=== PATIENT | female | born 1955 | race Caucasian/White ===

== ENCOUNTER 2017-08-29 10:42 | Observation (INO) ==
[2017-08-29 12:30] LABS: Basophils % 0.5 %; Eosinophils # 0.1 K/mcL (0.0-0.6); Eosinophils % 2.3 %; Hematocrit 40.8 % (35.3-44.9); Hemoglobin 13.5 g/dL (11.5-15.4); Immature Granulocytes % 0.5 % (0-4); Lymphocytes # 1.3 K/mcL (0.6-4.6); Lymphocytes % 22.6 %; Mean Corpuscular HGB Conc 33.1 g/dL (31.6-35.5); Mean Corpuscular Hemoglobin 27.9 pg (28.0-33.3); Mean Corpuscular Volume 84.3 fL (83.0-100.0); Mean Platelet Volume 10.6 fL (9.4-12.4); Monocytes # 0.3 K/mcL (0.0-1.3); Monocytes % 4.3 %; Platelet Count 157 K/mcL (140-400); Red Blood Count 4.84 M/mcL (3.82-4.97); Red Cell Distribution Width 13.5 % (11.5-14.5); Segmented Neutrophils % 69.8 %
[2017-08-29 12:46] LABS: BUN/Creatinine Ratio 24 (6-26); Blood Urea Nitrogen 21 mg/dL (7-20); Calcium 9.1 mg/dL (8.6-10.8); Carbon Dioxide 24 mEq/L (19-29); Chloride 110 mEq/L (98-109); Glucose 200 mg/dL (70-99); Osmolality,Calculated 303 (280-300); Potassium 4.3 mEq/L (3.5-4.5); Sodium 142 mEq/L (136-145); eGFR For African Americans > 60 (> 60); eGFR For Non-African Americans > 60 (> 60)
[2017-08-29] MEDS ORDERED: Aspirin 81 MG TAB.CHEW PO STA (15:25)
--- NOTE | 2017-08-29 16:42 | Emergency Department Note ---
Disposition Clinical Impression: Chest pain Qualifiers: Chest pain type: unspecified Qualified Code(s): R07.9 - Chest pain, unspecified Disposition: Admitted As Inpatient Condition: Good Time of Disposition: 17:00 Chest Pain HPI - General Chief Complaint: ED Chest Pain Stated Complaint: chest pain x 3days Time Seen by Provider: 08/29/17 15:00 Source: patient Mode of arrival: wheelchair Limitations: no limitations Vital Signs Reviewed: Yes Nursing Notes Reviewed: Yes - History of Present Illness HPI Narrative: Patient is a 62-year-old female with a past medical history of hyperlipidemia, diabetes, hypertension, aortic valve repair and TIAs presents with complaint of right-sided chest pain that started 3 days ago while she was sitting down. She describes the chest pain as sharp stabbing pain that radiates into her right arm into into her back. The pain is nonexertional and it comes and goes and at its worst it is a 8 out of 10. She states nothing seems to make the pain better or worse. She has not taken any medications for the pain. She does have associated nausea and diaphoresis with the chest pain. It is also reproducible. The patient denies any shortness of breath or cough with the pain. No history of blood clots. No recent travels or surgeries. She states she was admitted to the hospital back in January 2016 where she had a catheterization but no stents. She states that her aortic valve repair was done in November 2015. She states this was the cause of her TIA because presentations from the valve or causing her to have any strokes. Denies any hemoptysis, fevers, headache, changes in vision, abdominal pain, urinary symptoms, diarrhea or lower extremity swelling or calf pain. Severity scale (1-10): 8 - Related Data Home Medications Medication Instructions Recorded Confirmed Gabapentin [Neurontin] 300 mg PO TID 01/07/16 08/29/17 Insulin Glargine [Lantus] 14 units SQ HS 01/07/16 08/29/17 Insulin LISPRO [Humalog Kwikpen 13 units SQ TID 01/07/16 08/29/17 U-100] Metoprolol [Lopressor] 25 mg PO BID 01/07/16 08/29/17 Sucralfate [Carafate] 1 gm PO QID 01/07/16 08/29/17 Topiramate [Topamax] 25 mg PO BID 01/07/16 08/29/17 metFORMIN [Glucophage] 1,000 mg PO BID 01/07/16 08/29/17 Aspirin Enteric Coated [Aspirin EC] 81 mg PO DAILY 08/29/17 08/29/17 Glimepiride [Amaryl] 2 mg PO 0800 08/29/17 08/29/17 Ibuprofen [Motrin] 800 mg PO TID PRN 08/29/17 08/29/17 Metoclopramide [Reglan] 5 mg PO BID 08/29/17 08/29/17 Nystatin POWDER [Nystop] 1 appl TP BID PRN 08/29/17 08/29/17 Simvastatin [Zocor] 20 mg PO HS 08/29/17 08/29/17 hydroCHLOROthiazide 25 mg PO QAM 08/29/17 08/29/17 [Hydrochlorothiazide] traMADol [Ultram] 50 mg PO BID PRN 08/29/17 08/29/17 Allergies Allergy/AdvReac Type Severity Reaction Status Date / Time latex Allergy Anaphylaxis Verified 08/07/17 12:48 Penicillins Allergy Anaphylaxis Verified 08/07/17 12:48 lisinopril AdvReac Swelling Verified 08/07/17 12:48 of Lip/Tongue/Throat All systems ED: reviewed and negative except as stated. Constitutional: Denies: fever, chills ENT ED: Denies: throat pain Cardiovascular: Reports: chest pain. Denies: palpitations, dyspnea on exertion , orthopnea, edema Respiratory: Denies: cough, dyspnea, wheezes Gastrointestinal: Denies: abdominal pain, nausea, vomiting, diarrhea Genitourinary: Denies: urgency, dysuria Musculoskeletal: Denies: back pain, neck pain Integumentary: Denies: rash, abrasion Neurological: Denies: headache, weakness Chest Pain PMH - Past Medical History Medical history: Reports: coronary artery disease, diabetes, hypertension, myocardial infarction, TIA Surgical history: Reports: appendectomy, cholecystectomy, hysterectomy Psychiatric history: Reports: bipolar - Social History Smoking Status: Never smoker Alcohol use: Reports: none Drug use: Reports: none Physical Exam Patient is in no acute distress she is sitting up in bed. She speaks in full sentences and she is pleasant. - General Limitations: no limitations General appearance: alert, in no apparent distress - Head Head exam: atraumatic, normocephalic, normal inspection - Eye Eye exam: Present: normal appearance, PERRL, EOMI - ENT ENT exam: normal exam, normal oropharynx, mucous membranes moist - Neck Neck exam: Present: normal inspection, full ROM, trachea midline - Chest Chest inspection: Present: normal inspection, symmetric chest wall rise. Absent : tenderness - Respiratory Respiratory exam: Present: normal lung sounds bilaterally, other (Chest pain is reproducible.). Absent: respiratory distress, wheezes - Cardiovascular Cardiovascular exam: Present: regular rate, normal rhythm, normal heart sounds - Abdominal Exam Abdominal exam: Present: soft, Non-Tender, normal bowel sounds - Extremities Exam Extremities exam: Present: normal inspection, full ROM, normal capillary refill. Absent: tenderness, pedal edema - Back Exam Back exam: Present: normal inspection, full ROM. Absent: tenderness, CVA tenderness (R), CVA tenderness (L) - Neurological Exam Neurological exam: Present: alert, oriented X3 - Psychiatric Psychiatric exam: Present: normal affect, normal mood - Skin Skin exam: Present: warm, dry, intact, normal color Course Course Narrative: Patient is a 8-year-old female with multiple risk factors for cardiac disease including hyperlipidemia, diabetes, hypertension, and aortic valve repair. She is presenting tonight with right-sided chest pain that is reproducible and comes and goes and is currently an 8 out of 10. The patient's lab work so far is unremarkable troponin was negative. Her EKG does not show any signs of ischemia or infarction at this time. Her initial troponin was negative. Patient is to receive a full aspirin while in the emergency department and she will also undergo Nitrol trial. Patient's chest x-ray was no acute. This pending the patient will be admitted to the hospitalist for further evaluation of her chest pain. It does appear that the patient had workup of her chest pain back in January 2016 when she is presenting with similar episodes of pain at that time. Her echo done in January 2016 [facility] showed 65-70% ejection fraction with mild LVH and mild left diastolic dysfunction. Normal wall motion. She had a heart catheter done but no stent placement. She also had a CT chest that was negative at that time for any PE. - Reevaluation(s) Reevaluation #1: The patient states that her pain improved with the nitroglycerin. The patient does have a blood pressure of the 180s over 110. However, the patient states that she has not had her home medications yet today which she does take medication for blood pressure at home. After the nitroglycerin the patient's blood pressure has been improving at this time is 160/104. Plan remains to admit the patient hospitalist. Time: 16:56 Vital Signs Temperature 97.9 F 08/29/17 10:55 Pulse Rate 75 08/29/17 10:55 Respiratory Rate 16 08/29/17 10:55 Blood Pressure 174/92 08/29/17 10:55 O2 Sat by Pulse Oximetry 98 08/29/17 10:55 Temperature 98 F 08/30/17 16:47 Pulse Rate 62 08/30/17 16:47 Respiratory Rate 17 08/30/17 16:47 Blood Pressure 125/76 08/30/17 16:47 O2 Sat by Pulse Oximetry 97 08/30/17 16:47 Oxygen Delivery Oxygen Delivery Room Air Chest Pain - MDM Narrative Medical decision making narrative: Repeat EKG: Patient had a repeat EKG done at the time of me seeing her due to her chest pain being an 8 out of 10. EKG was done at 15:38. Rate of 70 bpm sinus rhythm normal axis and no signs of hypertrophy and no ST elevation or depression or Q waves EKG is unchanged from her prior EKG that was done at 11 AM this morning. - Medical Records Medical records reviewed: Yes I reviewed the patient's medical records. - Lab Data Lab results reviewed: Yes I reviewed the patient's lab results. Result diagrams: 08/30/17 04:03 08/30/17 04:03 Lab Results 08/29/17 08/29/17 08/29/17 Range/Units 12:22 12:22 12:22 WBC 5.8 (4.3-11.1) K/mcL RBC 4.84 (3.82-4.97) M/mcL Hgb 13.5 (11.5-15.4) g/dL Hct 40.8 (35.3-44.9) % MCV 84.3 (83.0-100.0) fL MCH 27.9 L (28.0-33.3) pg MCHC 33.1 (31.6-35.5) g/dL RDW 13.5 (11.5-14.5) % Plt Count 157 (140-400) K/mcL MPV 10.6 (9.4-12.4) fL Immature Gran % 0.5 (0-4) % Seg Neutrophils % 69.8 % Lymphocytes % 22.6 % Monocytes % 4.3 % Eosinophils % 2.3 % Basophils % 0.5 % Neutrophils # 4.0 (1.6-8.9) K/mcL Lymphocytes # 1.3 (0.6-4.6) K/mcL Monocytes # 0.3 (0.0-1.3) K/mcL Eosinophils # 0.1 (0.0-0.6) K/mcL Basophils # 0.0 (0.0-0.2) K/mcL Sodium 142 (136-145) mEq/L Potassium 4.3 (3.5-4.5) mEq/L Chloride 110 H (98-109) mEq/L Carbon Dioxide 24 (19-29) mEq/L BUN 21 H (7-20) mg/dL Creatinine 0.88 (0.57-1.11) mg/dL Est GFR ( Amer) > 60 (> 60) Est GFR (Non-Af Amer) > 60 (> 60) BUN/Creatinine Ratio 24 (6-26) Glucose 200 H (70-99) mg/dL Calculated Osmolality 303 H (280-300) Calcium 9.1 (8.6-10.8) mg/dL Troponin I 0.00 (0-0.03) ng/mL - Radiology Data Radiology results reviewed: Yes I reviewed the patient's radiology results. Chest X-Ray 08/29/17 11:04 IMPRESSION: No evidence of acute cardiopulmonary disease. D/ / Rakesh Brown MD / Rakesh Brown MD Interpreting Provider: Rakesh Brown MD - EKG Data EKG attestation: Yes I reviewed and interpreted this EKG. EKG results narrative: Patient's initial EKG interpreted by me done at 11:01 AM showed a rate of 72 bpm in a normal sinus rhythm. Normal axis. No signs of hypertrophy. No ST elevation or depression or new Q waves. EKG is unchanged from prior that was performed on November 292016. Heart Score - Score History: Moderately Suspicious EKG: Normal Age: 45-65 Risk Factors: Equal/Greater than 3 risk factor or history of atherosclerotic disease Troponin: Less than normal limit HEART Score Total: 4 Attestation Statement - Attestation Attestation: I examined this patient and my medical decision-making was reviewed with the Resident Physician. I agree with the documented findings, disposition and treatment plan as described except to the extent set forth below. Chest pain with risk factors. Plan to admit to the hospital for further evaluation of possible acute coronary syndrome.
[2017-08-29] MEDS: Nitroglycerin 0.4 MG TAB.SUBL SL PRN ×2 (16:43→17:20)
[2017-08-29] MEDS ORDERED: traMADol 50 MG TABLET PO PRN ×2 (21:49→21:54)
[2017-08-29] MEDS ORDERED: Naloxone 0.4 MG/ML INJ IVP PRN (21:50)
[2017-08-29] MEDS ORDERED: D5% in Water 1,000 ML IVC PRN (21:50)
[2017-08-29] MEDS ORDERED: Dextrose Gel 15 GM PO PRN ×2 (21:50)
[2017-08-29] MEDS ORDERED: *HR* Morphine 2 MG/ML SYRINGE IVP PRN (21:50)
[2017-08-29] MEDS ORDERED: *HR* Dextrose 50 % in Water (Syg) 50 ML SYRINGE IVP PRN (21:50)
--- NOTE | 2017-08-29 22:30 | Internal Med History&Physical ---
<Gwyn Abreu - Last Filed: 08/29/17 22:43> Date of Encounter: 08/29/17 Time of Encounter: 22:28 Assessment and Plan (1) ACS (acute coronary syndrome) Current visit: Yes Status: Acute History of prior TN. Initially complaining of sharp chest pain for 3 days reporting 06/16, now complaining of right-sided chest pain that is dull without radiation and nonexertional 02/14. Initial troponin negative. Chest x-ray negative for acute pulmonary process. EKG normal sinus rhythm rate of 70. Continue to rule out ACS Continuous telemetry, continuous SPO2 monitoring, Echocardiogram in the morning Pain control with morphine 2 mg every 4 hours when necessary Serial troponins, Stress test contraindicated due to continued chest pain (2) Diabetes Current visit: Yes Status: Acute History of type 2 diabetes. On glyburide and metformin at home as well as sliding scale. Stop glyburide and metformin. Continue basal insulin add LSSIC with AC/HC Accu-Cheks. Diabetic diet Qualifiers: Diabetes mellitus type: type 2 Diabetes mellitus complication status: without complication Diabetes mellitus buttermaker insulin use: with buttermaker use Qualified Code(s): E11.9 - Type 2 diabetes mellitus without complications ; Z79.4 - prison (current) use of insulin; Z79.4 - long term care phlebotomist (current) use of insulin; Z79.4 - prison (current) use of insulin; Z79.4 - prison ( current) use of insulin (3) HTN (hypertension) Current visit: Yes Status: Acute History of hypertension. Currently hypertensive average systolic blood pressure 170s. She has not had her antihypertensives today. Plan is to restart antihypertensive medications. Continue BB and HCTZ. Qualifiers: Hypertension type: essential hypertension Qualified Code(s): I10 - Essential (primary) hypertension (4) HLD (hyperlipidemia) Current visit: Yes Status: Acute History of hyperlipidemia continue statin at home dose Qualifiers: Hyperlipidemia type: unspecified Qualified Code(s): E78.5 - Hyperlipidemia , unspecified Internal Medicine - H&P: HPI Chief complaint: Chest pain Admitted From: Home Plans for Post Hospital Care: Home History of present illness: Ms. Mtz is a 62 year old female with a PMH of HLD, HTN, DM, aortic valve repair TN with stents and multiple TIAs. She reports to [facility] today with nonexertional right-sided chest pain 3 days that was initially sharp on presentation. She was given 2 sublingual nitroglycerin and chest pain improved from 06/16-02/14. Troponin -0.01 chest x-ray no acute pulmonary process. Due to ongoing chest pain and multiple risk factors including CAD, HLD, HTN, DM she will be admitted for further workup and evaluation Past Med Surg Social Fam HX - Past Medical History Medical history: coronary artery disease, diabetes, hyperlipidemia, hypertension , myocardial infarction, TIA Psychiatric history: bipolar - Past Surgical History Surgical History: appendectomy, cholecystectomy, hysterectomy - Social History Smoking Status: Never smoker Smokeless Tobacco Status: No Alcohol use: none Drug use: none - Family History Mother Adopted: No Family Member Ethnicity: Non- Living Status: Still Living Hx Family Cardiac Disorders: Yes (HTN,) Hx Family Respiratory Disorders: Yes (COPD, one lung removed) Hx Family Cancer: No Hx Family GI Disorders: No Hx Family Endocrine Disorder: Yes (DM) Hx Family Neuromuscular Disorders: No Hx Family Neurologic Disorders: No Hx Family HEENT Disorders: No Hx Family Autoimmune Disorders: No Internal Medicine - H&P: Meds Gabapentin [Neurontin] 300 mg PO TID 01/07/16 [History] Insulin Glargine [Lantus] 14 units SQ HS 01/07/16 [History] Insulin LISPRO [Humalog Kwikpen U-100] 13 units SQ TID 01/07/16 [History] Metoprolol [Lopressor] 25 mg PO BID 01/07/16 [History] Sucralfate [Carafate] 1 gm PO QID 01/07/16 [History] Topiramate [Topamax] 25 mg PO BID 01/07/16 [History] metFORMIN [Glucophage] 1,000 mg PO BID 01/07/16 [History] Aspirin Enteric Coated [Aspirin EC] 81 mg PO DAILY 08/29/17 [History] Glimepiride [Amaryl] 2 mg PO 0800 08/29/17 [History] Ibuprofen [Motrin] 800 mg PO TID PRN 08/29/17 [History] Metoclopramide [Reglan] 5 mg PO BID 08/29/17 [History] Nystatin POWDER [Nystop] 1 appl TP BID PRN 08/29/17 [History] Simvastatin [Zocor] 20 mg PO HS 08/29/17 [History] hydroCHLOROthiazide [Hydrochlorothiazide] 25 mg PO QAM 08/29/17 [History] traMADol [Ultram] 50 mg PO BID PRN 08/29/17 [History] 3 Allergy/AdvReac Type Severity Reaction Status Date / Time latex Allergy Anaphylaxis Verified 08/07/17 12:48 Penicillins Allergy Anaphylaxis Verified 08/07/17 12:48 lisinopril AdvReac Swelling Verified 08/07/17 12:48 of Lip/Tongue/Throat All Systems PM: A 10-system review of systems was performed and is negative for pertinent findings except as documented above in the HPI. - Constitutional Constitutional: no chills, no fatigue, no fever(s), no night sweats, no weakness , no weight gain, no weight loss - Cardiovascular Cardiovascular ROS IM: as per HPI, dyspnea on exertion (Mild exertional dyspnea) , no edema - Respiratory Respiratory: as per HPI, dyspnea on exertion, no cough, no dyspnea, no hemoptysis, no wheezing, no pain on inspiration, no pain with cough - Gastrointestinal Gastrointestinal: no abdominal pain, no diarrhea, no hematemesis, no hematochezia, no melena, no nausea, no vomiting - Genitourinary Genitourinary: no change in urinary stream, no dysuria, no flank pain, no hematuria - Musculoskeletal Musculoskeletal ROS IM: no numbness, no tingling - Integumentary Integumentary IM: no rash, no unusual bruising - Neurological Neurological ROS: headache(s) (Following 2 sublingual nitroglycerin), no confusion, no convulsions, no focal weakness, no numbness, no tingling, no tremor(s) - Constitutional Vitals: Temp Pulse Resp BP Pulse Ox 98.2 F 74 14 179/101 93 08/29/17 19:00 08/29/17 19:00 08/29/17 19:00 08/29/17 19:00 08/29/17 19:00 General appearance: Present: cooperative, A&O X 3, no acute distress, answers questions appropriately - Head Head exam: Present: atraumatic, normocephalic - Eye Eye exam: Present: PERRL, conjuntiva pink, sclera anicteric Pupils: Present: PERRL - Neck Neck exam general surgery: Present: supple, trachea midline. Absent: lymphadenopathy - Respiratory Respiratory exam: Present: CTAB. Absent: accessory muscle use, rales, rhonchi, wheezes - Cardiovascular Cardiovascular exam: Present: RRR, +S1, +S2. Absent: diastolic murmur, gallop, rubs, systolic murmur - GI/Abdominal GI/Abdominal exam: Present: normal bowel sounds, soft, no peritoneal signs. Absent: distended, tenderness - Extremities Exam Extremities exam: Present: warm, radial pulses palpable and symmetrical. Absent : calf tenderness, cyanotic, pedal edema - Neurological Exam Neurological exam: Present: CN II-XII intact, oriented X3, no focal deficits. Absent: pronater drift, facial droop, speech deficit - Skin Skin exam: Present: dry, intact Internal Med - H&P Results - Labs CBC & Chem 7: 08/29/17 12:22 08/29/17 12:22 - EKG Data -: EKG Interpreted by Myself EKG shows normal: sinus rhythm - EKG Data Prior EKG available for review: yes When compared to previous EKG: there is no significant change Interpretation IM: normal EKG - Diagnostic Studies Chest x-ray Status: image reviewed by me Additional comments: No acute cardiopulmonary process <Saima Caal - Last Filed: 08/30/17 03:20> Date of Encounter: 08/30/17 Internal Medicine - H&P: HPI History of present illness: Ms. Mtz is a 62 year old female All Systems PM: A 10-system review of systems was performed and is negative for pertinent findings except as documented above in the HPI. - Constitutional Vitals: Temp Pulse Resp BP Pulse Ox 98.1 F 58 14 174/72 98 08/30/17 03:07 08/30/17 03:07 08/30/17 03:07 08/30/17 03:07 08/30/17 03:07 Internal Med - H&P Results - Labs CBC & Chem 7: 08/29/17 12:22 08/29/17 12:22 Labs: Cardiac Enzymes 08/29/17 Range/Units 22:25 Troponin I 0.01 (0-0.03) ng/mL - Attending Attestation I saw and examined patient independently. I have discussed with [employer] Mr Abreu regarding the management plan. Agree with the documentation. Patient presented with chest pain to rule out ACS. On exam, patient has significant right chest wall tenderness. Most likely chest pain is up from muscular or skeletal source. However, need to rule out ACS with checking 3 sets of troponin. Also will check echocardiogram. Keep the patient on telemetry.
[2017-08-29] MEDS ORDERED: Insulin LISPRO 300 UNITS/3 ML VIAL SQ SCH (22:33)
[2017-08-29] MEDS: Gabapentin 300 MG CAPSULE PO SCH (22:43)
[2017-08-29] MEDS: Topiramate 25 MG TABLET PO SCH (22:43)
[2017-08-30 04:50] LABS: Basophils % 0.5 %; Eosinophils # 0.2 K/mcL (0.0-0.6); Eosinophils % 2.9 %; Hematocrit 38.6 % (35.3-44.9); Hemoglobin 12.8 g/dL (11.5-15.4); Immature Granulocytes % 0.3 % (0-4); Lymphocytes # 1.4 K/mcL (0.6-4.6); Lymphocytes % 23.1 %; Mean Corpuscular HGB Conc 33.2 g/dL (31.6-35.5); Mean Corpuscular Hemoglobin 27.5 pg (28.0-33.3); Mean Platelet Volume 11.1 fL (9.4-12.4); Monocytes # 0.4 K/mcL (0.0-1.3); Monocytes % 6.2 %; Neutrophils # 4.1 K/mcL (1.6-8.9); Platelet Count 155 K/mcL (140-400); Red Blood Count 4.65 M/mcL (3.82-4.97); Red Cell Distribution Width 13.5 % (11.5-14.5)
[2017-08-30 04:58] LABS: BUN/Creatinine Ratio 22 (6-26); Blood Urea Nitrogen 19 mg/dL (7-20); Calcium 9.1 mg/dL (8.6-10.8); Carbon Dioxide 22 mEq/L (19-29); Chloride 109 mEq/L (98-109); Glucose 205 mg/dL (70-99); Osmolality,Calculated 296 (280-300); Potassium 3.9 mEq/L (3.5-4.5); Sodium 139 mEq/L (136-145); eGFR For African Americans > 60 (> 60); eGFR For Non-African Americans > 60 (> 60)
[2017-08-30] MEDS ORDERED: *HR* Enoxaparin 40 MG/0.4 ML SYRINGE SQ SCH (06:00)
[2017-08-30] MEDS: Gabapentin 300 MG CAPSULE PO SCH ×2 (07:49→14:35)
[2017-08-30] MEDS: Topiramate 25 MG TABLET PO SCH (07:49)
[2017-08-30] MEDS: Insulin LISPRO 300 UNITS/3 ML VIAL SQ SCH ×3 (07:52→16:54)
[2017-08-30] MEDS ORDERED: Aspirin Enteric Coated 81 MG Tablet PO SCH (09:00)
[2017-08-30] MEDS ORDERED: hydroCHLOROthiazide 25 MG TABLET PO SCH (09:00)
[2017-08-30] MEDS ORDERED: Regadenoson 0.4 MG/5 ML SYRINGE IVP ONE (09:12)
--- NOTE | 2017-08-30 16:04 | Electrocardiograph Report ---
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
--- NOTE | 2017-08-30 16:14 | Discharge Summary ---
Date of Encounter: 08/30/17 Time of Encounter: 14:45 - Discharge Diagnosis (1) Chest pain Priority: Primary Status: Acute Comments: Patient reports chronic midsternal chest pain, intermittent, sharp, sometimes radiation to either right or left chart. She reports some shortness of breath at times, no nausea. Onset in November 2015 after her age or aortic valve repair. Pain is reproducible with palpation and with deep inspiration. Troponins were negative. She had a left heart catheter in January, that showed no coronary artery disease. Chest x-ray is negative for an acute cardiopulmonary process. Echocardiogram shows all EF of 60% with mild LV hypertrophy, mild LVEDD, mild TR. Patient's stress test today was negative for ischemia or infarct, gated EF of greater than 70%. I believe the chest pain is musculoskeletal in nature status post aortic valve repair. Continue to follow with cardiology. Chest X-Ray 08/29/17 11:04 IMPRESSION: No evidence of acute cardiopulmonary disease. D/ / Rakesh Brown MD / Rakesh Brown MD Interpreting Provider: Rakesh Brown MD Echocardiogram 08/30/17 22:26 Impressions: LVEF 60%. Mild left ventricular concentric hypertrophy. Mild left ventricular diastolic dysfunction. Normal right ventricular structure and function. Mild tricuspid regurgitation. No pulmonary hypertension. Left Ventricular Wall Motion: Rest Echo Findings All wall segments showed normal motion. Findings: Study Quality * Technically adequate exam. ECG Findings * Normal sinus rhythm. Left Ventricle * LVEF 60%. * Normal LV chamber size. * Mild left ventricular concentric hypertrophy. * Mild left ventricular diastolic dysfunction. Right Ventricle * Normal right ventricular structure and function. Left Atrium * Moderately dilated left atrium. Right Atrium * Normal right atrial size. Aortic Valve * No aortic regurgitation. * Trileaflet aortic valve. * Normal aortic valve structure. * No aortic stenosis. Mitral Valve * Normal mitral valve structure. * No mitral regurgitation. * No mitral stenosis. Tricuspid Valve * Tricuspid valve not well visualized. * Mild tricuspid regurgitation. * Estimated RA pressure is 3 mmHg. * Estimated RVSP is 27 mmHg. * No pulmonary hypertension. Pulmonic Valve * Pulmonic valve is not well visualized. * No pulmonic stenosis. * Trace pulmonic regurgitation. Pulmonary Artery * Pulmonary artery not well visualized. Aorta * Normally sized aortic root. Pericardium * There is no pericardial effusion present. Interatrial Septum * No evidence of PFO by color Doppler. IVC * Normal IVC dimensions and inspiratory collapse. Qualifiers: Chest pain type: unspecified Qualified Code(s): R07.9 - Chest pain, unspecified (2) ACS (acute coronary syndrome) Priority: Secondary Status: Acute Comments: History of prior MT. Patient tells admitting physician that she has had chest pain for 3 days. She tells me that she has had chest pain "open heart" in November,. Initial troponin negative. Chest x-ray negative for acute pulmonary process. EKG normal sinus rhythm rate of 70. Echo is within normal limits, stress test is negative for ischemia or infarct. Patient had left heart catheter in January, that showed no disease. Troponins are negative. Patient will follow up with cardiology as scheduled for continued evaluation. (3) Diabetes Priority: Secondary Status: Chronic Comments: Poorly controlled with an A1c of 9.5. Patient could potentially benefit from diabetes education. Continue diabetic diet. Continue home medications. 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 Continue home medications. Continue to monitor vital signs and share with primary care provider. Qualifiers: Hypertension type: essential hypertension Qualified Code(s): I10 - Essential (primary) hypertension (5) HLD (hyperlipidemia) Priority: Secondary Status: Chronic Comments: Continue home medication. Qualifiers: Hyperlipidemia type: unspecified Qualified Code(s): E78.5 - Hyperlipidemia , unspecified (6) DVT prophylaxis Priority: Secondary Status: Acute Comments: Lovenox SQ - Discharge Medications Home Medications: Gabapentin [Neurontin] 300 mg PO TID 01/07/16 [History] Insulin Glargine [Lantus] 14 units SQ HS 01/07/16 [History] Insulin LISPRO [Humalog Kwikpen U-100] 13 units SQ TID 01/07/16 [History] Metoprolol [Lopressor] 25 mg PO BID 01/07/16 [History] Sucralfate [Carafate] 1 gm PO QID 01/07/16 [History] Topiramate [Topamax] 25 mg PO BID 01/07/16 [History] metFORMIN [Glucophage] 1,000 mg PO BID 01/07/16 [History] Aspirin Enteric Coated [Aspirin EC] 81 mg PO DAILY 08/29/17 [History] Glimepiride [Amaryl] 2 mg PO 0800 08/29/17 [History] Ibuprofen [Motrin] 800 mg PO TID PRN 08/29/17 [History] Metoclopramide [Reglan] 5 mg PO BID 08/29/17 [History] Nystatin POWDER [Nystop] 1 appl TP BID PRN 08/29/17 [History] Simvastatin [Zocor] 20 mg PO HS 08/29/17 [History] hydroCHLOROthiazide [Hydrochlorothiazide] 25 mg PO QAM 08/29/17 [History] traMADol [Ultram] 50 mg PO BID PRN 08/29/17 [History] Allergies/Adverse Reactions: 3 Allergy/AdvReac Type Severity Reaction Status Date / Time latex Allergy Anaphylaxis Verified 08/07/17 12:48 Penicillins Allergy Anaphylaxis Verified 08/07/17 12:48 lisinopril AdvReac Swelling Verified 08/07/17 12:48 of Lip/Tongue/Throat Procedures/tests Complete & Pending: Procedures Performed prior 72 hours Category Date Time Status NM jamison perf SPECT multi [NM] Routine Exams 08/30/17 07:22 Taken EV echocardiogram Routine Y 08/30/17 22:26 Completed SP pharm nuclear stress Routine Y 08/30/17 07:21 Completed Date of admission: 08/29/17 17:27 Primary care physician: Xavier Thomas MD Discharging clinician: Merline Rojo Anticipated date of discharge: 08/30/17 - Patient Status Disposition: Home, Self-Care Condition: Good Functional capacity at discharge: independent ambulation Overall status at discharge: patient is back to baseline - Discharge Instructions Follow Up With: Xavier Thomas MD [Primary Care Provider] - 09/06/17 2:00 pm Additional Instructions: Follow-up with her primary care provider. Return to the emergency department as needed for any other problems or concerns , or if symptoms return or worsen. Take your medications as directed. Return to your normal activities as tolerated. - Diet and Activity Activity: increase activity as tolerated Diet: diabetic diet, low fat, low cholesterol Hospital course: Ms. Mtz is a 62 year old female with past medical history of hypertension, diabetes, hyperlipidemia, MT, aortic valve repair. Patient presented to the emergency department with complaint of chest pain. She reports constant chest pain since aortic valve repair, reports ED physician she has had chest pain for 3 days. She tells primary nurse she has had chest pain for 2 weeks. Pain is reproducible with palpation deep inspiration. Echo and stress tests were negative. Troponins were negative. Chest x-ray is free of any cardiopulmonary processes. Patient denies chest pain. She states it is intermittent, sharp and stabbing, sometimes with radiation, sometimes without. It is not necessarily related to exertion, does not always improve with rest. His chest pain is atypical and most likely due to chest wall pain. Patient's labs are stable and within normal limits. Vitals are stable and within normal limits. Patient is ready for discharge. See assessment and plan for hospital course. - Time Spent with Patient Total time spent providing and/or coordinating discharge services: Less than 30 minutes - Constitutional Vitals: Temp Pulse Resp BP Pulse Ox 98.2 F 67 16 117/84 100 08/30/17 11:24 08/30/17 11:24 08/30/17 11:24 08/30/17 11:24 08/30/17 11:24 General appearance: Present: cooperative, A&O X 3, pleasant, no acute distress, answers questions appropriately - Head Head exam: Present: atraumatic, normal inspection, normocephalic - Eye Eye exam: Present: EOMI, normal appearance, conjuntiva pink, sclera anicteric - Neck Neck exam general surgery: Present: supple, trachea midline. Absent: lymphadenopathy - Respiratory Respiratory exam: Present: CTAB. Absent: accessory muscle use, rales, rhonchi, wheezes - Cardiovascular Cardiovascular exam: Present: RRR, +S1, +S2. Absent: diastolic murmur, gallop, rubs, systolic murmur - GI/Abdominal GI/Abdominal exam: Present: hepatomegaly, normal bowel sounds, soft, no peritoneal signs. Absent: distended, tenderness - Extremities Exam Extremities exam: Present: normal capillary refill, normal inspection, warm, radial pulses palpable and symmetrical. Absent: calf tenderness, cyanotic, pedal edema, tenderness - Neurological Exam Neurological exam: Present: alert, oriented X3, no focal deficits. Absent: facial droop, speech deficit - Skin Skin exam: Present: dry, intact, normal color, warm. Absent: rash
[2017-08-30 16:48] VITALS: BP 125/76
[2017-08-30] MEDS ORDERED: Insulin LISPRO 300 UNITS/3 ML VIAL SQ SCH (21:00)
[2017-08-30] MEDS ORDERED: INSULIN GLARGINE 14 UNIT SQ SCH (21:00)
[2017-08-30] MEDS ORDERED: Insulin DETEMIR 100 UNIT/ML X5UNITS SQ SCH (21:00)
== END 2017-08-30 16:57 | disposition home or self-care (01) ==
LOC: 3BNU 10:42 → EMEROO 10:42 → 3BNU 19:40
PROVIDERS: ADMIT Nurse Practitioner; ATTEND Registered Nurse

== ENCOUNTER 2018-03-08 09:47 | Observation (INO) ==
[2018-03-08] MEDS ORDERED: 0.9 % Sodium Chloride 500 ML IVC ONE (09:57)
[2018-03-08] MEDS ORDERED: Aspirin 81 MG TAB.CHEW PO ONE (09:57)
--- NOTE | 2018-03-08 10:06 | Emergency Department Note ---
Disposition Clinical Impression: Chest pain Disposition: Admitted As Inpatient Condition: Good Referrals: Xavier Thomas MD [Primary Care Provider] - Forms: ED Satisfaction Letter Time of Disposition: 11:12 Chest Pain HPI - General Chief Complaint: ED Chest Pain Stated Complaint: chest pain, sob Time Seen by Provider: 03/08/18 09:56 Source: patient, EMS Mode of arrival: EMS Limitations: no limitations Vital Signs Reviewed: Yes Nursing Notes Reviewed: Yes - History of Present Illness HPI Narrative: Patient presents to the ED with the chief complaint of chest pain. Patient reports that she has been having some intermittent left-sided sharp chest discomfort that feels like someone is punching her in the chest. She has a history of a CABG in 2016, but states the pain does not really feel similar to that. She does complain of getting nauseated and diaphoretic with this and also short of breath. Reports the pain never fully goes away, but it does come and go. Has been getting progressively worse over the last 3 days. Severity scale (1-10): 9 - Related Data Home Medications Medication Instructions Recorded Confirmed Gabapentin [Neurontin] 300 mg PO TID 01/07/16 08/29/17 Insulin Glargine [Lantus] 14 units SQ HS 01/07/16 08/29/17 Insulin LISPRO [Humalog Kwikpen 13 units SQ TID 01/07/16 08/29/17 U-100] Metoprolol [Lopressor] 25 mg PO BID 01/07/16 08/29/17 Sucralfate [Carafate] 1 gm PO QID 01/07/16 08/29/17 Topiramate [Topamax] 25 mg PO BID 01/07/16 08/29/17 metFORMIN [Glucophage] 1,000 mg PO BID 01/07/16 08/29/17 Aspirin Enteric Coated [Aspirin EC] 81 mg PO DAILY 08/29/17 08/29/17 Glimepiride [Amaryl] 2 mg PO 0800 08/29/17 08/29/17 Ibuprofen [Motrin] 800 mg PO TID PRN 08/29/17 08/29/17 Metoclopramide [Reglan] 5 mg PO BID 08/29/17 08/29/17 Nystatin POWDER [Nystop] 1 appl TP BID PRN 08/29/17 08/29/17 Simvastatin [Zocor] 20 mg PO HS 08/29/17 08/29/17 hydroCHLOROthiazide 25 mg PO QAM 08/29/17 08/29/17 [Hydrochlorothiazide] traMADol [Ultram] 50 mg PO BID PRN 08/29/17 08/29/17 Previous Rx's Medication Instructions Recorded Azithromycin [Azithromycin 6-Tab 250 mg PO PER PKG DI #6 tab 09/09/17 Pack] Benzonatate [Tessalon] 200 mg PO TID PRN #30 capsule 09/09/17 GuaiFENesin ER [Mucinex] 1,200 mg PO BID #20 tbbp.12hr 09/09/17 Allergies Allergy/AdvReac Type Severity Reaction Status Date / Time latex Allergy Anaphylaxis Verified 09/09/17 10:31 lisinopril Allergy Swelling Verified 09/09/17 10:31 of Lip/Tongue/Throat Penicillins Allergy Anaphylaxis Verified 09/09/17 10:31 Review of Systems: As reviewed in the HPI. All other systems reviewed are negative or normal. Chest Pain PMH - Past Medical History Medical history: Reports: hypertension, myocardial infarction, TIA Surgical history: Reports: appendectomy, cholecystectomy, hysterectomy Psychiatric history: Reports: bipolar - Social History Smoking Status: Never smoker Alcohol use: Reports: none Drug use: Reports: none Physical Exam - General Limitations: no limitations General appearance: alert, anxious - Head Head exam: atraumatic, normocephalic, normal inspection - Eye Eye exam: Present: normal appearance, PERRL, EOMI - Chest Chest inspection: Present: normal inspection, symmetric chest wall rise, other ( midline scar) - Respiratory Respiratory exam: Present: normal lung sounds bilaterally - Cardiovascular Cardiovascular exam: Present: regular rate, normal rhythm, normal heart sounds - Abdominal Exam Abdominal exam: Present: soft, Non-Tender. Absent: tenderness, distention, guarding, rebound, rigidity - Neurological Exam Neurological exam: Present: alert, oriented X3 - Psychiatric Psychiatric exam: Present: normal mood, anxious. Absent: normal affect - Skin Skin exam: Present: warm, dry, intact, normal color Course Course Narrative: Patient presenting with chest pain and shortness breath. Has a history of CABG 2 years ago. States it does not feel similar. States she had some sort of aortic valve surgery to remove something. She is unsure what this was. Denies any aortic valve replacement surgeries. - Reevaluation(s) Reevaluation #1: Spoke with the patient and she would like to be admitted to check out her heart. She also has a history of gastroparesis and does describe her pain is mainly epigastric and this could be related to that as well. We will admit hospitalist service for further workup, accepted by Dr. Dubose Vital Signs Temperature 98.3 F 03/08/18 09:49 Pulse Rate 75 03/08/18 09:49 Respiratory Rate 16 03/08/18 09:49 Blood Pressure 148/106 03/08/18 09:49 O2 Sat by Pulse Oximetry 98 03/08/18 09:49 Temperature 98.3 F 03/08/18 09:49 Pulse Rate 61 03/08/18 11:09 Respiratory Rate 18 03/08/18 11:09 Blood Pressure 133/91 03/08/18 11:09 O2 Sat by Pulse Oximetry 97 03/08/18 11:09 Oxygen Delivery Oxygen Delivery Room Air Chest Pain - Medical Records Medical records reviewed: Yes I reviewed the patient's medical records. - Lab Data Lab results reviewed: Yes I reviewed the patient's lab results. Result diagrams: 03/08/18 09:56 03/08/18 09:56 Lab Results 03/08/18 03/08/18 03/08/18 Range/Units 09:56 09:56 09:56 WBC 5.8 (4.3-11.1) K/mcL RBC 4.95 (3.82-4.97) M/mcL Hgb 14.0 (11.5-15.4) g/dL Hct 41.4 (35.3-44.9) % MCV 83.6 (83.0-100.0) fL MCH 28.3 (28.0-33.3) pg MCHC 33.8 (31.6-35.5) g/dL RDW 13.4 (11.5-14.5) % Plt Count 152 (140-400) K/mcL MPV 11.0 (9.4-12.4) fL Immature Gran % 0.2 (0-4) % Seg Neutrophils % 71.9 % Lymphocytes % 18.2 % Monocytes % 5.7 % Eosinophils % 3.3 % Basophils % 0.7 % Neutrophils # 4.1 (1.6-8.9) K/mcL Lymphocytes # 1.1 (0.6-4.6) K/mcL Monocytes # 0.3 (0.0-1.3) K/mcL Eosinophils # 0.2 (0.0-0.6) K/mcL Basophils # 0.0 (0.0-0.2) K/mcL PT 13.1 H (9.4-12.1) Seconds INR 1.2 APTT 30.3 (26.0-36.0) Seconds Sodium (136-145) mEq/L Potassium (3.5-5.1) mEq/L Chloride (98-107) mEq/L Carbon Dioxide (23-29) mEq/L BUN (8-23) mg/dL Creatinine (0.60-1.20) mg/dL Est GFR ( Amer) (> 60) Est GFR (Non-Af Amer) (> 60) BUN/Creatinine Ratio (6-26) Glucose (70-105) mg/dL Calculated Osmolality (280-300) Calcium (8.6-10.3) mg/dL Troponin I (< 0.04) ng/mL B-Natriuretic Peptide 80 (Less than 100) pg/mL Urine Color (Yellow) Urine Clarity (Clear) Urine pH (5.0-8.0) pH Units Ur Specific [place] (1.010-1.025) Urine Protein (Neg-Trace) mg/dL Urine Glucose (UA) (Normal) mg/dL Urine Ketones (Negative) mg/dL Urine Blood (Negative) Urine Nitrite (Negative) Urine Bilirubin (Negative) Urine Urobilinogen (Normal) mg/dL Ur Leukocyte Esterase (Negative) Urine Microscopic RBC (0-3) per hpf Urine Microscopic WBC (0-3) per hpf Ur Squamous Epith Cells (None-Few) per lpf Urine Bacteria (None-Few) per hpf Hyaline Casts (None-Few) per lpf Ur Culture Indicated? (NO) 03/08/18 03/08/18 Range/Units 09:56 10:26 WBC (4.3-11.1) K/mcL RBC (3.82-4.97) M/mcL Hgb (11.5-15.4) g/dL Hct (35.3-44.9) % MCV (83.0-100.0) fL MCH (28.0-33.3) pg MCHC (31.6-35.5) g/dL RDW (11.5-14.5) % Plt Count (140-400) K/mcL MPV (9.4-12.4) fL Immature Gran % (0-4) % Seg Neutrophils % % Lymphocytes % % Monocytes % % Eosinophils % % Basophils % % Neutrophils # (1.6-8.9) K/mcL Lymphocytes # (0.6-4.6) K/mcL Monocytes # (0.0-1.3) K/mcL Eosinophils # (0.0-0.6) K/mcL Basophils # (0.0-0.2) K/mcL PT (9.4-12.1) Seconds INR APTT (26.0-36.0) Seconds Sodium 141 (136-145) mEq/L Potassium 3.5 (3.5-5.1) mEq/L Chloride 109 H (98-107) mEq/L Carbon Dioxide 25 (23-29) mEq/L BUN 18 (8-23) mg/dL Creatinine 0.76 (0.60-1.20) mg/dL Est GFR ( Amer) > 60 (> 60) Est GFR (Non-Af Amer) > 60 (> 60) BUN/Creatinine Ratio 24 (6-26) Glucose 133 H (70-105) mg/dL Calculated Osmolality 296 (280-300) Calcium 9.1 (8.6-10.3) mg/dL Troponin I < 0.03 (< 0.04) ng/mL B-Natriuretic Peptide (Less than 100) pg/mL Urine Color Yellow (Yellow) Urine Clarity Clear (Clear) Urine pH 6.5 (5.0-8.0) pH Units Ur Specific [place] 1.025 (1.010-1.025) Urine Protein Trace (Neg-Trace) mg/dL Urine Glucose (UA) 250 H (Normal) mg/dL Urine Ketones Negative (Negative) mg/dL Urine Blood Negative (Negative) Urine Nitrite Negative (Negative) Urine Bilirubin Negative (Negative) Urine Urobilinogen Normal (Normal) mg/dL Ur Leukocyte Esterase Negative (Negative) Urine Microscopic RBC 0-3 (0-3) per hpf Urine Microscopic WBC 0-3 (0-3) per hpf Ur Squamous Epith Cells Moderate H (None-Few) per lpf Urine Bacteria None Seen (None-Few) per hpf Hyaline Casts None Seen (None-Few) per lpf Ur Culture Indicated? NO (NO) - Radiology Data Radiology results reviewed: Yes I reviewed the patient's radiology results. - EKG Data EKG attestation: Yes I reviewed and interpreted this EKG. EKG results narrative: Sinus rhythm, rate 62, para 163, QRS 84, QTC 414, normal axis, no acute ischemic changes , but does have about half a millimeter elevation in leads 2, 3 and aVF
[2018-03-08 10:08] LABS: Basophils % 0.7 %; Eosinophils # 0.2 K/mcL (0.0-0.6); Eosinophils % 3.3 %; Hematocrit 41.4 % (35.3-44.9); Immature Granulocytes % 0.2 % (0-4); Lymphocytes # 1.1 K/mcL (0.6-4.6); Lymphocytes % 18.2 %; Mean Corpuscular HGB Conc 33.8 g/dL (31.6-35.5); Mean Corpuscular Hemoglobin 28.3 pg (28.0-33.3); Mean Corpuscular Volume 83.6 fL (83.0-100.0); Monocytes # 0.3 K/mcL (0.0-1.3); Monocytes % 5.7 %; Neutrophils # 4.1 K/mcL (1.6-8.9); Platelet Count 152 K/mcL (140-400); Red Blood Count 4.95 M/mcL (3.82-4.97); Red Cell Distribution Width 13.4 % (11.5-14.5); Segmented Neutrophils % 71.9 %
[2018-03-08 10:14] LABS: INR 1.2; Prothrombin Time 13.1 Seconds (9.4-12.1)
[2018-03-08 10:17] LABS: Activated Partial Thrombo Time 30.3 Seconds (26.0-36.0)
[2018-03-08 10:27] LABS: Troponin I < 0.03 ng/mL (< 0.04)
[2018-03-08 10:34] LABS: Bilirubin,Urine Negative (Negative); Blood,Urine Negative (Negative); Clarity,Urine Clear (Clear); Color,Urine Yellow (Yellow); Glucose,Urine (UA) 250 mg/dL (Normal); Ketones,Urine Negative (Negative); Leukocyte Esterase,Urine Negative (Negative); Nitrite,Urine Negative (Negative); PH,Urine 6.5 pH Units (5.0-8.0); Protein,Urine Trace mg/dL (Neg-Trace); Specific Gravity,Urine 1.025 (1.010-1.025); Urobilinogen,Urine Normal (Normal)
[2018-03-08 10:36] LABS: BUN/Creatinine Ratio 24 (6-26); Blood Urea Nitrogen 18 mg/dL (8-23); Calcium 9.1 mg/dL (8.6-10.3); Carbon Dioxide 25 mEq/L (23-29); Chloride 109 mEq/L (98-107); Glucose 133 mg/dL (70-105); Osmolality,Calculated 296 (280-300); Potassium 3.5 mEq/L (3.5-5.1); Sodium 141 mEq/L (136-145); eGFR For African Americans > 60 (> 60); eGFR For Non-African Americans > 60 (> 60)
[2018-03-08 10:36] LABS: Bacteria,Urine None Seen per hpf (None-Few); Hyaline Casts,Urine None Seen per lpf (None-Few); RBC,Urine 0-3 per hpf (0-3); Squamous Epithelial Cell,Urine Moderate per lpf (None-Few); WBC,Urine 0-3 per hpf (0-3)
--- NOTE | 2018-03-08 10:50 | Emergency Department Note ---
Disposition Clinical Impression: Chest pain Disposition: Admitted As Inpatient Condition: Good General Adult HPI - General Chief complaint: ED Chest Pain Stated complaint: chest pain, sob Time Seen by Provider: 03/08/18 09:56 Source: patient, EMS Mode of arrival: EMS Limitations: no limitations Nursing Notes Reviewed: Yes Vital Signs Reviewed: Yes - History of Present Illness Pain Scale: 9 - Related Data Home Medications Medication Instructions Recorded Confirmed Gabapentin [Neurontin] 300 mg PO TID 01/07/16 03/08/18 Insulin Glargine [Lantus] 14 units SQ HS 01/07/16 03/08/18 Insulin LISPRO [Humalog Kwikpen 13 units SQ TID 01/07/16 03/08/18 U-100] Metoprolol [Lopressor] 25 mg PO BID 01/07/16 03/08/18 Sucralfate [Carafate] 1 gm PO QID 01/07/16 03/08/18 Topiramate [Topamax] 25 mg PO BID 01/07/16 03/08/18 metFORMIN [Glucophage] 1,000 mg PO BID 01/07/16 03/08/18 Aspirin Enteric Coated [Aspirin EC] 81 mg PO DAILY 08/29/17 03/08/18 Glimepiride [Amaryl] 2 mg PO 0800 08/29/17 03/08/18 Ibuprofen [Motrin] 800 mg PO TID PRN 08/29/17 03/08/18 Metoclopramide [Reglan] 5 mg PO BID 08/29/17 03/08/18 Nystatin POWDER [Nystop] 1 appl TP BID PRN 08/29/17 03/08/18 Simvastatin [Zocor] 20 mg PO HS 08/29/17 03/08/18 hydroCHLOROthiazide 25 mg PO QAM 08/29/17 03/08/18 [Hydrochlorothiazide] traMADol [Ultram] 50 mg PO BID PRN 08/29/17 03/08/18 Dulaglutide [Trulicity] 0.75 mg SQ TU 03/08/18 03/08/18 Allergies Allergy/AdvReac Type Severity Reaction Status Date / Time latex Allergy Anaphylaxis Verified 03/08/18 11:23 lisinopril Allergy Swelling Verified 03/08/18 11:23 of Lip/Tongue/Throat Penicillins Allergy Anaphylaxis Verified 03/08/18 11:23 Past Medical History - Past Medical History Medical history: Reports: hypertension, myocardial infarction, TIA Surgical history: Reports: appendectomy, cholecystectomy, hysterectomy Psychiatric history: Reports: bipolar - Social History Smoking Status: Never smoker Smokeless Tobacco Status: No Alcohol use: Reports: none Drug use: Reports: none Physical Exam - General Limitations: no limitations General appearance: alert, anxious Course Vital Signs Temperature 98.3 F 03/08/18 09:49 Pulse Rate 75 03/08/18 09:49 Respiratory Rate 16 03/08/18 09:49 Blood Pressure 148/106 03/08/18 09:49 O2 Sat by Pulse Oximetry 98 03/08/18 09:49 Temperature 98.1 F 03/08/18 12:33 Pulse Rate 65 03/08/18 12:33 Respiratory Rate 16 03/08/18 12:33 Blood Pressure 152/91 03/08/18 12:33 O2 Sat by Pulse Oximetry 96 03/08/18 12:33 Oxygen Delivery Oxygen Delivery Room Air Medical Decision Making - Lab Data Result diagrams: 03/08/18 09:56 03/08/18 09:56 Lab Results 03/08/18 03/08/18 03/08/18 Range/Units 09:56 09:56 09:56 WBC 5.8 (4.3-11.1) K/mcL RBC 4.95 (3.82-4.97) M/mcL Hgb 14.0 (11.5-15.4) g/dL Hct 41.4 (35.3-44.9) % MCV 83.6 (83.0-100.0) fL MCH 28.3 (28.0-33.3) pg MCHC 33.8 (31.6-35.5) g/dL RDW 13.4 (11.5-14.5) % Plt Count 152 (140-400) K/mcL MPV 11.0 (9.4-12.4) fL Immature Gran % 0.2 (0-4) % Seg Neutrophils % 71.9 % Lymphocytes % 18.2 % Monocytes % 5.7 % Eosinophils % 3.3 % Basophils % 0.7 % Neutrophils # 4.1 (1.6-8.9) K/mcL Lymphocytes # 1.1 (0.6-4.6) K/mcL Monocytes # 0.3 (0.0-1.3) K/mcL Eosinophils # 0.2 (0.0-0.6) K/mcL Basophils # 0.0 (0.0-0.2) K/mcL PT 13.1 H (9.4-12.1) Seconds INR 1.2 APTT 30.3 (26.0-36.0) Seconds Sodium (136-145) mEq/L Potassium (3.5-5.1) mEq/L Chloride (98-107) mEq/L Carbon Dioxide (23-29) mEq/L BUN (8-23) mg/dL Creatinine (0.60-1.20) mg/dL Est GFR ( Amer) (> 60) Est GFR (Non-Af Amer) (> 60) BUN/Creatinine Ratio (6-26) Glucose (70-105) mg/dL Calculated Osmolality (280-300) Calcium (8.6-10.3) mg/dL Troponin I (< 0.04) ng/mL B-Natriuretic Peptide 80 (Less than 100) pg/mL Urine Color (Yellow) Urine Clarity (Clear) Urine pH (5.0-8.0) pH Units Ur Specific [place] (1.010-1.025) Urine Protein (Neg-Trace) mg/dL Urine Glucose (UA) (Normal) mg/dL Urine Ketones (Negative) mg/dL Urine Blood (Negative) Urine Nitrite (Negative) Urine Bilirubin (Negative) Urine Urobilinogen (Normal) mg/dL Ur Leukocyte Esterase (Negative) Urine Microscopic RBC (0-3) per hpf Urine Microscopic WBC (0-3) per hpf Ur Squamous Epith Cells (None-Few) per lpf Urine Bacteria (None-Few) per hpf Hyaline Casts (None-Few) per lpf Ur Culture Indicated? (NO) 03/08/18 03/08/18 Range/Units 09:56 10:26 WBC (4.3-11.1) K/mcL RBC (3.82-4.97) M/mcL Hgb (11.5-15.4) g/dL Hct (35.3-44.9) % MCV (83.0-100.0) fL MCH (28.0-33.3) pg MCHC (31.6-35.5) g/dL RDW (11.5-14.5) % Plt Count (140-400) K/mcL MPV (9.4-12.4) fL Immature Gran % (0-4) % Seg Neutrophils % % Lymphocytes % % Monocytes % % Eosinophils % % Basophils % % Neutrophils # (1.6-8.9) K/mcL Lymphocytes # (0.6-4.6) K/mcL Monocytes # (0.0-1.3) K/mcL Eosinophils # (0.0-0.6) K/mcL Basophils # (0.0-0.2) K/mcL PT (9.4-12.1) Seconds INR APTT (26.0-36.0) Seconds Sodium 141 (136-145) mEq/L Potassium 3.5 (3.5-5.1) mEq/L Chloride 109 H (98-107) mEq/L Carbon Dioxide 25 (23-29) mEq/L BUN 18 (8-23) mg/dL Creatinine 0.76 (0.60-1.20) mg/dL Est GFR ( Amer) > 60 (> 60) Est GFR (Non-Af Amer) > 60 (> 60) BUN/Creatinine Ratio 24 (6-26) Glucose 133 H (70-105) mg/dL Calculated Osmolality 296 (280-300) Calcium 9.1 (8.6-10.3) mg/dL Troponin I < 0.03 (< 0.04) ng/mL B-Natriuretic Peptide (Less than 100) pg/mL Urine Color Yellow (Yellow) Urine Clarity Clear (Clear) Urine pH 6.5 (5.0-8.0) pH Units Ur Specific [place] 1.025 (1.010-1.025) Urine Protein Trace (Neg-Trace) mg/dL Urine Glucose (UA) 250 H (Normal) mg/dL Urine Ketones Negative (Negative) mg/dL Urine Blood Negative (Negative) Urine Nitrite Negative (Negative) Urine Bilirubin Negative (Negative) Urine Urobilinogen Normal (Normal) mg/dL Ur Leukocyte Esterase Negative (Negative) Urine Microscopic RBC 0-3 (0-3) per hpf Urine Microscopic WBC 0-3 (0-3) per hpf Ur Squamous Epith Cells Moderate H (None-Few) per lpf Urine Bacteria None Seen (None-Few) per hpf Hyaline Casts None Seen (None-Few) per lpf Ur Culture Indicated? NO (NO) Attestation Statement - Attestation Attestation: This documentation is done with the assistance of Dragon dictation. Despite efforts made to ensure accuracy, there may be inaccuracies in chartered wealth manager or spelling and typographical errors. Patient seen and evaluated by Dr. Rodriguez and myself, I agree with his evaluation management plan, supervise care the patient's stay. Patient presents today with intermittent chest pain it has been going on for last 3-4 days it sharp in nature over the right side. No radiation. No shortness of breath no back pain. History of CABG in the past. Benadryl cardiac workup and reassess. She is in agreement with plan. Nitroglycerin and baby aspirin were given prior to arrival. Chest X-Ray 03/08/18 09:58 IMPRESSION: No acute cardiopulmonary findings. D/ / Queta Camacho MD / Queta Camacho MD Interpreting Provider: Queta Camacho MD
[2018-03-08] MEDS ORDERED: Naloxone 0.4 MG/ML INJ IVP PRN (11:27)
--- NOTE | 2018-03-08 11:35 | Internal Med History&Physical ---
Date of Encounter: 03/08/18 Time of Encounter: 11:33 Internal Medicine - H&P: HPI Chief complaint: Chest pain Admitted From: Emergency Dept Plans for Post Hospital Care: Home History of present illness: Ms. Mtz is a 63 year old female who is a background medical history of her diabetes, hypertension, dyslipidemia, previous cardiac surgery at [facility]. Patient came to the emergency department with persistent ongoing chest pain. Patient claims that the chest pain is located at the precordial region. This is radiating precordial chest pain which radiates from her record region to left arm along with the job. Patient tells me that pain gets worse with activity and movement and relieved by rest. Patient denies shortness of breath, nausea, vomiting, abdominal pain, dizziness and diarrhea. Workup in the emergency room: Patient was evaluated in the emergency room. Basic labs were drawn. Chest x-ray was done. Reason for admission: Chest pain with heart score 3, to rule out ACS. Family history: Noncontributory Past Med Surg Social Fam HX - Past Medical History Medical history: hypertension, myocardial infarction, TIA Psychiatric history: bipolar - Past Surgical History Surgical History: appendectomy, cholecystectomy, hysterectomy - Social History Smoking Status: Never smoker Smokeless Tobacco Status: No Alcohol use: none Drug use: none - Family History Mother Adopted: No Family Member Ethnicity: Non- Living Status: Still Living Hx Family Cardiac Disorders: Yes (HTN,) Hx Family Respiratory Disorders: Yes (COPD, one lung removed) Hx Family Cancer: No Hx Family GI Disorders: No Hx Family Endocrine Disorder: Yes (DM) Hx Family Neuromuscular Disorders: No Hx Family Neurologic Disorders: No Hx Family HEENT Disorders: No Hx Family Autoimmune Disorders: No Internal Medicine - H&P: Meds Gabapentin [Neurontin] 300 mg PO TID 01/07/16 [History] Insulin Glargine [Lantus] 14 units SQ HS 01/07/16 [History] Insulin LISPRO [Humalog Kwikpen U-100] 13 units SQ TID 01/07/16 [History] Metoprolol [Lopressor] 25 mg PO BID 01/07/16 [History] Sucralfate [Carafate] 1 gm PO QID 01/07/16 [History] Topiramate [Topamax] 25 mg PO BID 01/07/16 [History] metFORMIN [Glucophage] 1,000 mg PO BID 01/07/16 [History] Aspirin Enteric Coated [Aspirin EC] 81 mg PO DAILY 08/29/17 [History] Glimepiride [Amaryl] 2 mg PO 0800 08/29/17 [History] Ibuprofen [Motrin] 800 mg PO TID PRN 08/29/17 [History] Metoclopramide [Reglan] 5 mg PO BID 08/29/17 [History] Nystatin POWDER [Nystop] 1 appl TP BID PRN 08/29/17 [History] Simvastatin [Zocor] 20 mg PO HS 08/29/17 [History] hydroCHLOROthiazide [Hydrochlorothiazide] 25 mg PO QAM 08/29/17 [History] traMADol [Ultram] 50 mg PO BID PRN 08/29/17 [History] Dulaglutide [Trulicity] 0.75 mg SQ TU 03/08/18 [History] 3 Allergy/AdvReac Type Severity Reaction Status Date / Time latex Allergy Anaphylaxis Verified 03/08/18 11:23 lisinopril Allergy Swelling Verified 03/08/18 11:23 of Lip/Tongue/Throat Penicillins Allergy Anaphylaxis Verified 03/08/18 11:23 All Systems PM: A 10-system review of systems was performed and is negative for pertinent findings except as documented above in the HPI. - Constitutional Constitutional: no chills, no fever(s), no night sweats - EENT Eyes: no change in vision, no discharge, no pain, no photophobia Ears: no ear discharge, no ear pain, no tinnitus Nose, mouth and throat: no dysphagia, no nasal discharge, no neck pain, no sore throat - Cardiovascular Cardiovascular ROS IM: chest pain, no diaphoresis, no dyspnea, no lightheadedness, no palpitations, no syncope - Respiratory Respiratory: no cough, no dyspnea, no wheezing, no excessive phlegm production - Gastrointestinal Gastrointestinal: no abdominal pain, no diarrhea, no hematemesis, no hematochezia, no melena, no nausea, no vomiting - Genitourinary Genitourinary: no change in urinary stream, no dysuria, no flank pain, no hematuria - Musculoskeletal Musculoskeletal ROS IM: no numbness, no tingling - Integumentary Integumentary IM: no rash, no unusual bruising - Neurological Neurological ROS: no confusion, no convulsions, no focal weakness, no numbness, no tingling, no tremor(s) - Hematologic/Lymphatic Hematologic/Lymphatic: no easy bruising - Constitutional Vitals: Temp Pulse Resp BP Pulse Ox 98.3 F 61 18 133/91 97 03/08/18 09:49 03/08/18 11:09 03/08/18 11:09 03/08/18 11:09 03/08/18 11:09 General appearance: Present: A&O X 3, morbidly obese, pleasant, no acute distress, answers questions appropriately - Head Head exam: Present: atraumatic, normocephalic - Eye Eye exam: Present: PERRL, conjuntiva pink, sclera anicteric Pupils: Present: PERRL - Neck Neck exam general surgery: Present: supple, trachea midline. Absent: lymphadenopathy - Respiratory Respiratory exam: Present: CTAB. Absent: accessory muscle use, rales, rhonchi, wheezes - Cardiovascular Cardiovascular exam: Present: RRR, +S1, +S2. Absent: diastolic murmur, gallop, rubs, systolic murmur - GI/Abdominal GI/Abdominal exam: Present: normal bowel sounds, soft, no peritoneal signs. Absent: distended, tenderness - Extremities Exam Extremities exam: Present: warm, radial pulses palpable and symmetrical. Absent : calf tenderness, cyanotic, pedal edema - Neurological Exam Neurological exam: Present: CN II-XII intact, oriented X3, no focal deficits. Absent: pronater drift, facial droop, speech deficit - Skin Skin exam: Present: dry, intact Internal Med - H&P Results - Labs CBC & Chem 7: 03/08/18 09:56 03/08/18 09:56 - Assessment and plan (1) Chest pain Current Visit: Yes Status: Acute Assessment and plan: 63/female Background history of diabetes, hypertension, dyslipidemia Admitted with chest pain. LAURA score: 3 Assessment: Chest pain to rule out ACS In view of diabetic gastroparesis and she might have a reflux disease. Plan: Admit as observation. Cardiac diet/nothing by mouth from midnight Cycle troponin. CBC/CMP/lipid panel in AM. Aspirin/beta blockers/statin. Resume home medication. I examined this patient in the emergency room #5 and patient's was at bedside. Plan of care explained to them at length. Patient does not have any question or concern at this point. Qualifiers: Chest pain type: precordial pain Qualified Code(s): R07.2 - Precordial pain (2) Diabetes Current Visit: No Status: Chronic Assessment and plan: Patient is known to have her type 2 diabetes mellitus. At this point we will follow the orders from the subcutaneous insulin order set. Qualifiers: Diabetes mellitus type: type 2 Diabetes mellitus custodial insulin use: with custodial use Diabetes mellitus complication status: without complication Qualified Code(s): E11.9 - Type 2 diabetes mellitus without complications; Z79.4 - [facility] (current) use of insulin; Z79.4 - [facility] ( current) use of insulin; Z79.4 - long term (current) use of insulin; Z79.4 - long term (current) use of insulin (3) HTN (hypertension) Current Visit: No Status: Chronic Assessment and plan: Patient is known to have a hypertension. At this point his blood pressure is within acceptable range. We will recheck patient's blood pressure. We will resume home medication Qualifiers: Hypertension type: essential hypertension Qualified Code(s): I10 - Essential (primary) hypertension (4) HLD (hyperlipidemia) Current Visit: No Status: Chronic Assessment and plan: Continue statin. Lipid panel in a.m. Qualifiers: Hyperlipidemia type: unspecified Qualified Code(s): E78.5 - Hyperlipidemia , unspecified (5) DVT prophylaxis Current Visit: No Status: Acute Assessment and plan: heaprin Medical decision making: This patient has a moderate to severe risk of worsening in spite of being on appropriate medication due to the underlying complex morbid conditions. - Time Spent With Patient Total time spent is greater than 50% in coordination of care (as documented) at patient's floor/unit and/or counseling patient:
[2018-03-08] MEDS ORDERED: *HR* Dextrose 50 % in Water (Syg) 50 ML SYRINGE IVP PRN (11:40)
[2018-03-08] MEDS ORDERED: D5% in Water 1,000 ML IVC PRN (11:40)
[2018-03-08] MEDS ORDERED: Dextrose Gel 15 GM/37.5 ML TUBE PO PRN ×2 (11:40)
[2018-03-08] MEDS: Insulin LISPRO 300 UNITS/3 ML VIAL SQ SCH ×2 (14:31→17:18)
[2018-03-08] MEDS: Sucralfate 1 GM TABLET PO SCH ×3 (14:39→21:54)
[2018-03-08] MEDS: Gabapentin 300 MG CAPSULE PO SCH ×2 (14:39→21:54)
[2018-03-08] MEDS: *HR* Heparin 5,000 UNIT/ML VIAL SQ SCH ×2 (14:39→23:38)
[2018-03-08] MEDS ORDERED: (Dulaglutide [Trulicity] 0.75 MG) SQ SCH (19:00)
[2018-03-08] MEDS: traMADol 50 MG TABLET PO PRN (19:14)
[2018-03-08] MEDS ORDERED: Insulin DETEMIR 100 UNIT/ML X5UNITS SQ SCH (21:00)
[2018-03-08] MEDS: Topiramate 25 MG TABLET PO SCH (21:55)
--- NOTE | 2018-03-08 22:28 | Electrocardiograph Report ---
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
[2018-03-09 04:39] LABS: Basophils % 0.7 %; Eosinophils # 0.2 K/mcL (0.0-0.6); Immature Granulocytes % 0.3 % (0-4); Lymphocytes # 1.4 K/mcL (0.6-4.6); Lymphocytes % 23.8 %; Mean Corpuscular HGB Conc 33.3 g/dL (31.6-35.5); Mean Corpuscular Hemoglobin 28.1 pg (28.0-33.3); Mean Corpuscular Volume 84.4 fL (83.0-100.0); Mean Platelet Volume 11.2 fL (9.4-12.4); Monocytes # 0.4 K/mcL (0.0-1.3); Monocytes % 6.5 %; Neutrophils # 3.9 K/mcL (1.6-8.9); Platelet Count 131 K/mcL (140-400); Red Blood Count 4.62 M/mcL (3.82-4.97); Red Cell Distribution Width 13.5 % (11.5-14.5); Segmented Neutrophils % 65.7 %
[2018-03-09 04:47] LABS: INR 1.1; Prothrombin Time 12.3 Seconds (9.4-12.1)
[2018-03-09 05:04] LABS: Alanine Aminotransferase 50 Units/L (7-52); Albumin 3.5 g/dL (3.5-5.7); Albumin/Globulin Ratio 1.3 (1.1-2.2); Alkaline Phosphatase 138 Units/L (34-104); Aspartate Amino Transferase 30 Units/L (13-39); BUN/Creatinine Ratio 22 (6-26); Bilirubin,Total 0.9 mg/dL (0.3-1.0); Blood Urea Nitrogen 18 mg/dL (8-23); Calcium 8.8 mg/dL (8.6-10.3); Carbon Dioxide 28 mEq/L (23-29); Chloride 105 mEq/L (98-107); Chol/HDL Ratio 2.9 (0-4.9); Cholesterol 150 mg/dL (< 200); Globulin 2.7 g/dL (2.4-3.5); Glucose 225 mg/dL (70-105); HDL Cholesterol 51 mg/dL (40-59); LDL Cholesterol,Calculated 78 mg/dL (0-99); Magnesium 1.7 mg/dL (1.6-2.6); Osmolality,Calculated 295 (280-300); Phosphorous 3.2 mg/dL (2.7-4.5); Potassium 3.7 mEq/L (3.5-5.1); Sodium 138 mEq/L (136-145); Total Protein 6.2 g/dL (6.4-8.9); Triglycerides 105 mg/dL (< 150); eGFR For African Americans > 60 (> 60); eGFR For Non-African Americans > 60 (> 60)
[2018-03-09] MEDS: traMADol 50 MG TABLET PO PRN ×2 (05:41→16:49)
[2018-03-09] MEDS: *HR* Heparin 5,000 UNIT/ML VIAL SQ SCH ×2 (05:43→13:41)
[2018-03-09] MEDS ORDERED: hydroCHLOROthiazide 25 MG TABLET PO SCH (09:00)
[2018-03-09] MEDS ORDERED: Aspirin Enteric Coated 81 MG Tablet PO SCH (09:00)
[2018-03-09] MEDS: Insulin LISPRO 300 UNITS/3 ML VIAL SQ SCH ×3 (09:09→16:49)
[2018-03-09] MEDS: Gabapentin 300 MG CAPSULE PO SCH ×2 (09:37→14:26)
[2018-03-09] MEDS: Topiramate 25 MG TABLET PO SCH (09:38)
[2018-03-09] MEDS: Sucralfate 1 GM TABLET PO SCH ×3 (09:39→16:49)
--- NOTE | 2018-03-09 16:20 | Discharge Summary ---
- NOTES TO OUTPATIENT PROVIDER Notes to Outpatient Provider: Patient seen for ACS rule out. Chest pain has subsided since admission, workup found to be negative. Recent workup in August 2017 including TTE found preserved ejection fraction; perfusion imaging negative for ischemic infarct. Patient has a history of gastroparesis and is also complaining of epigastric discomfort, and nausea. She reports that her bowel movements have been more frequent than her normal pattern. She has been instructed to follow up with her primary care provider and would benefit from a referral to GI for EGD. I will attempt to schedule this from the inpatient side ; see schedule. (Dr. Isbell). Date of Encounter: 03/09/18 Time of Encounter: 16:16 - Discharge Diagnosis (1) Chest pain Priority: Primary Status: Resolved Assessment and Plan: Patient presented with right-sided chest pain radiating to the left and into left shoulder and arm. Reports that the pain is exertional and improves with rest. Denies any associated shortness of breath, vomiting, abdominal pain, dizziness. She is also having epigastric pain and nausea and has a history of gastroparesis. I believe her current pain being better workup was negative is likely related to gastric issues. She would benefit from a follow-up with gastroenterology in the outpatient setting. History of prior NV, risk factors include HTN, obesity, sedentary lifestyle Troponins negative 4 at 0.03 Recent cardiac workup in August 2017; nonexercise stress at that time found to be negative for ischemia or infarct TTT shows preserved ejection fraction, mild left ventricular concentric hypertrophy, mild left ventricular diastolic dysfunction, moderately dilated left atrium Patient remains hemodynamically stable, chest pain has subsided at this time. Patient medically safe for discharge. She has been informed to return to the ED showed chest pain return. Qualifiers: Chest pain type: precordial pain Qualified Code(s): R07.2 - Precordial pain (2) Diabetes Priority: Secondary Status: Chronic Assessment and Plan: Patient is known to have her type 2 diabetes mellitus. Continue glimepiride and metformin at discharge Qualifiers: Diabetes mellitus type: type 2 Diabetes mellitus detention insulin use: with detention use Diabetes mellitus complication status: without complication Qualified Code(s): E11.9 - Type 2 diabetes mellitus without complications; Z79.4 - [facility] (current) use of insulin; Z79.4 - [facility] ( current) use of insulin; Z79.4 - [facility] (current) use of insulin; Z79.4 - ocean transportation intermediary (current) use of insulin (3) HTN (hypertension) Priority: Secondary Status: Chronic Assessment and Plan: Patient is known to have a hypertension. But pressures remained stable throughout the stay. Continue home anti-HTN medications Qualifiers: Hypertension type: essential hypertension Qualified Code(s): I10 - Essential (primary) hypertension (4) HLD (hyperlipidemia) Priority: Secondary Status: Chronic Assessment and Plan: Continue statin. At discharge Qualifiers: Hyperlipidemia type: unspecified Qualified Code(s): E78.5 - Hyperlipidemia , unspecified (5) DVT prophylaxis Priority: Secondary Status: Acute Hospital course: Ms. Mtz is a 63 year old female admitted for chest pain rule out. Patient has had a recent cardiac workup including stress test negative for ischemia, TTE with nonacute findings. Troponins negative 3 today. Chest pain is since subsided. Appears to be gastrointestinal. She has been instructed to follow- up with PCP and has been referred to GI. Appointment confirmation with GI pending (Dr. Isbell) Discharge discussed with: patient, nurse - Time Spent with Patient Total time spent providing and/or coordinating discharge services: Greater than 30 minutes - Discharge Medications Home Medications: Gabapentin [Neurontin] 300 mg PO TID 01/07/16 [History] Insulin Glargine [Lantus] 14 units SQ HS 01/07/16 [History] Insulin LISPRO [Humalog Kwikpen U-100] 13 units SQ TID 01/07/16 [History] Metoprolol [Lopressor] 25 mg PO BID 01/07/16 [History] Sucralfate [Carafate] 1 gm PO QID 01/07/16 [History] Topiramate [Topamax] 25 mg PO BID 01/07/16 [History] metFORMIN [Glucophage] 1,000 mg PO BID 01/07/16 [History] Aspirin Enteric Coated [Aspirin EC] 81 mg PO DAILY 08/29/17 [History] Glimepiride [Amaryl] 2 mg PO 0800 08/29/17 [History] Ibuprofen [Motrin] 800 mg PO TID PRN 08/29/17 [History] Metoclopramide [Reglan] 5 mg PO BID 08/29/17 [History] Nystatin POWDER [Nystop] 1 appl TP BID PRN 08/29/17 [History] Simvastatin [Zocor] 20 mg PO HS 08/29/17 [History] hydroCHLOROthiazide [Hydrochlorothiazide] 25 mg PO QAM 08/29/17 [History] traMADol [Ultram] 50 mg PO BID PRN 08/29/17 [History] Dulaglutide [Trulicity] 0.75 mg SQ TU 03/08/18 [History] Omeprazole 20 mg PO DAILY 30 Days #30 tablet. 03/09/18 [Rx] Allergies/Adverse Reactions: 3 Allergy/AdvReac Type Severity Reaction Status Date / Time latex Allergy Anaphylaxis Verified 03/08/18 11:23 lisinopril Allergy Swelling Verified 03/08/18 11:23 of Lip/Tongue/Throat Penicillins Allergy Anaphylaxis Verified 03/08/18 11:23 Date of admission: 03/08/18 11:23 Primary care physician: Xavier Thomas MD Discharging clinician: Gwyn Abreu Anticipated date of discharge: 03/09/18 - Constitutional Vitals: Temp Pulse Resp BP Pulse Ox 97.4 F L 56 18 135/84 95 03/09/18 11:50 03/09/18 11:50 03/09/18 11:50 03/09/18 11:50 03/09/18 11:50 General appearance: Present: A&O X 3, morbidly obese, pleasant, no acute distress, answers questions appropriately - Head Head exam: Present: atraumatic, normocephalic - Eye Eye exam: Present: PERRL, conjuntiva pink, sclera anicteric Pupils: Present: PERRL - Neck Neck exam general surgery: Present: supple, trachea midline. Absent: lymphadenopathy - Respiratory Respiratory exam: Present: CTAB. Absent: accessory muscle use, rales, rhonchi, wheezes - Cardiovascular Cardiovascular exam: Present: RRR, +S1, +S2. Absent: diastolic murmur, gallop, rubs, systolic murmur - GI/Abdominal GI/Abdominal exam: Present: normal bowel sounds, soft, no peritoneal signs. Absent: distended, tenderness - Extremities Exam Extremities exam: Present: warm, radial pulses palpable and symmetrical. Absent : calf tenderness, cyanotic, pedal edema - Neurological Exam Neurological exam: Present: CN II-XII intact, oriented X3, no focal deficits. Absent: pronater drift, facial droop, speech deficit - Skin Skin exam: Present: dry, intact - Patient Status Disposition: Home, Self-Care Condition: Good Overall status at discharge: patient is back to baseline - Discharge Instructions Follow Up With: Xavier Thomas MD [Primary Care Provider] -
[2018-03-09 16:24] VITALS: BP 144/84
== END 2018-03-09 18:09 | disposition home or self-care (01) ==
LOC: 3BNU 09:47 → EMEROO 09:47 → 3BNU 12:15
PROVIDERS: ADMIT Internal Medicine; ATTEND Internal Medicine

== ENCOUNTER 2019-08-03 09:46 | Observation (INO) ==
--- NOTE | 2019-08-03 09:56 | Emergency Department Note ---
Disposition Clinical Impression: Chest pain Qualifiers: Chest pain type: unspecified Qualified Code(s): R07.9 - Chest pain, unspecified Disposition: Admitted As Inpatient Condition: Good Referrals: Xavier Thomas MD [Primary Care Provider] - Forms: ED Satisfaction Letter Time of Disposition: 11:04 General Adult HPI - General Chief complaint: ED Chest Pain Stated complaint: Chest Pain Time Seen by Provider: 08/03/19 09:50 - Related Data Home Medications Medication Instructions Recorded Confirmed Gabapentin [Neurontin] 300 mg PO TID 01/07/16 03/08/18 Insulin Glargine [Lantus] 14 units SQ HS 01/07/16 03/08/18 Insulin LISPRO [Humalog Kwikpen 13 units SQ TID 01/07/16 03/08/18 U-100] Metoprolol [Lopressor] 25 mg PO BID 01/07/16 03/08/18 Sucralfate [Carafate] 1 gm PO QID 01/07/16 03/08/18 Topiramate [Topamax] 25 mg PO BID 01/07/16 03/08/18 metFORMIN [Glucophage] 1,000 mg PO BID 01/07/16 03/08/18 Aspirin Enteric Coated [Aspirin EC] 81 mg PO DAILY 08/29/17 03/08/18 Glimepiride [Amaryl] 2 mg PO 0800 08/29/17 03/08/18 Ibuprofen [Motrin] 800 mg PO TID PRN 08/29/17 03/08/18 Metoclopramide [Reglan] 5 mg PO BID 08/29/17 03/08/18 Nystatin POWDER [Nystop] 1 appl TP BID PRN 08/29/17 03/08/18 Simvastatin [Zocor] 20 mg PO HS 08/29/17 03/08/18 hydroCHLOROthiazide 25 mg PO QAM 08/29/17 03/08/18 [Hydrochlorothiazide] traMADol [Ultram] 50 mg PO BID PRN 08/29/17 03/08/18 Dulaglutide [Trulicity] 0.75 mg SQ TU 03/08/18 03/08/18 Previous Rx's Medication Instructions Recorded Omeprazole 20 mg PO DAILY 30 Days #30 03/09/18 tablet. Azithromycin [Zithromax] 0 mg PO Q24H #6 tablet 11/02/18 Phenylephrine HCl/Prometh HCl 5 - 10 ml PO QID PRN #180 syrup 11/02/18 [Promethazine-Phenylephrine Syr] Allergies Allergy/AdvReac Type Severity Reaction Status Date / Time latex Allergy Anaphylaxis Verified 11/02/18 13:11 lisinopril Allergy Swelling Verified 11/02/18 13:11 of Lip/Tongue/Throat Penicillins Allergy Anaphylaxis Verified 11/02/18 13:11 Past Medical History - Past Medical History Medical history: Reports: arthritis, coronary artery disease, diabetes, GERD, hyperlipidemia, hypertension, myocardial infarction, TIA Surgical history: Reports: appendectomy, cholecystectomy, coronary bypass (CABG), hysterectomy Psychiatric history: Reports: bipolar - Social History Smoking Status: Never smoker Smokeless Tobacco Status: No Alcohol use: Reports: none Drug use: Reports: none Course Vital Signs Temperature 99.6 F 08/03/19 09:57 Pulse Rate 69 08/03/19 09:57 Respiratory Rate 18 08/03/19 09:57 Blood Pressure 163/87 08/03/19 09:57 O2 Sat by Pulse Oximetry 100 08/03/19 09:57 Temperature 99.6 F 08/03/19 09:57 Pulse Rate 69 08/03/19 09:57 Respiratory Rate 18 08/03/19 09:57 Blood Pressure 163/87 08/03/19 09:57 O2 Sat by Pulse Oximetry 100 08/03/19 09:57 Oxygen Delivery Oxygen Delivery Room Air Medical Decision Making - Lab Data Result diagrams: 08/03/19 10:03 08/03/19 10:03 Lab Results 08/03/19 08/03/19 08/03/19 Range/Units 10:03 10:03 10:03 WBC 6.1 (4.3-11.1) K/mcL RBC 4.56 (3.82-4.97) M/mcL Hgb 13.5 (11.5-15.4) g/dL Hct 39.6 (35.3-44.9) % MCV 86.8 (83.0-100.0) fL MCH 29.6 (28.0-33.3) pg MCHC 34.1 (31.6-35.5) g/dL RDW 13.3 (11.5-14.5) % Plt Count 90 L (140-400) K/mcL MPV 11.3 (9.4-12.4) fL Immature Gran % 0.5 (0-4) % Seg Neutrophils % 79.1 % Lymphocytes % 12.9 % Monocytes % 5.1 % Eosinophils % 2.1 % Basophils % 0.3 % Neutrophils # 4.8 (1.6-8.9) K/mcL Lymphocytes # 0.8 (0.6-4.6) K/mcL Monocytes # 0.3 (0.0-1.3) K/mcL Eosinophils # 0.1 (0.0-0.6) K/mcL Basophils # 0.0 (0.0-0.2) K/mcL Immature Plt Fraction 5.2 (1.1-6.1) % PT 12.1 (9.4-12.1) Seconds INR 1.1 APTT 34.1 (26.0-36.0) Seconds Sodium 142 (136-145) mEq/L Potassium 3.4 L (3.5-5.1) mEq/L Chloride 108 H (98-107) mEq/L Carbon Dioxide 26 (23-29) mEq/L BUN 22 (8-23) mg/dL Creatinine 0.76 (0.60-1.20) mg/dL Est GFR ( Amer) > 60 (> 60) Est GFR (Non-Af Amer) > 60 (> 60) BUN/Creatinine Ratio 29 H (6-26) Glucose 169 H (70-105) mg/dL Calculated Osmolality 301 H (280-300) Calcium 8.9 (8.6-10.3) mg/dL Troponin I < 0.03 (< 0.04) ng/mL Attestation Statement - Attestation Attestation: Marybeth Buenrostro D.O., examined this patient and my medical decision-making was reviewed with the Resident Physician. I agree with the documented findings, disposition and treatment plan as described except to the extent set forth be low. This is a 64-year-old female with a past medical history of hypertension, hyperlipidemia, diabetes, status post aortic valve replacement 2016 who presents with a chief complaint of chest pain. The pain began around 4 AM this morning. Pain is to the right side of her chest and into her shoulder. She denies any trauma. Worse whenever it is pressed. She felt short of breath during that time as well. She has no prior history of CAD, DVT or PE. 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 No other complaints. General: Alert, no acute distress HENT: Normocephalic, Atraumatic Neck: No JVD Cardiovascular: Regular rate and rhythm. No appreciable murmurs Chest wall without abrasions, ecchymosis or cutaneous changes. She has reproducible tenderness over the right chest and up into the right shoulder Respiratory: Lungs CTAB. No wheezing/rhonchi Abdominal: Soft, non tender. No peritoneal findings Extremities: No peripheral edema Neuro: Alert, Mentating appropriately, No focal deficits Skin: Warm, Dry Plan: EKG, CXR, cardiac enzymes. The patient has considerable underlying risk for ACS. Her symptoms by no means seem to be cardiac at this point nevertheless we will obtain laboratory testing. ED Procedure Note: EKG interpretation - I agree with the resident physician's documentation and interpretation of the patient's EKG. Sinus rhythm with a rate of 70 beats or minute. Normal axis. Normal intervals. Normal R-wave progression. No gross ST elevations or depressions. No acute is chemic findings. Labs and imaging reviewed. Troponin negative. Patient now reporting pain again. Will give ASA and nitro. Patient admitted to the hospitalist. 05/16/19 Indications: Chest Discomfort Impressions: Stress ECG and echocardiogram were non-diagnostic for ischemia due to submaximal HR (76%). Average exercise capacity, 7 METs. Findings: Study Quality * Technically adequate exam. Resting Echocardiogram * LVEF 60-65%. * Normal left ventricular structure and function. Stress Echocardiogram * Normal sinus rhythm at rest. * No arrhythmias noted prior to exam beginning. * Stress ECG is non-diagnostic for ischemia due to failure to reach target heart rate. * No arrhythmias during exercise or recovery. * The patient demonstrated a normal blood pressure response. * Appropriate increase LVEF with stress at level of HR achieved. * The exercise capacity was average. * No chest pain during stress procedure.
--- NOTE | 2019-08-03 10:25 | Emergency Department Note ---
Disposition Clinical Impression: Chest pain Qualifiers: Chest pain type: unspecified Qualified Code(s): R07.9 - Chest pain, unspecified Disposition: Admitted As Inpatient Condition: Good Time of Disposition: 11:15 General Adult HPI - General Chief complaint: ED Chest Pain Stated complaint: Chest Pain Time Seen by Provider: 08/03/19 09:50 Source: patient Mode of arrival: ambulatory Limitations: no limitations Nursing Notes Reviewed: Yes Vital Signs Reviewed: Yes - History of Present Illness HPI Narrative: Patient is a 64-year-old female presents emergency part with reports of chest pain. Patient states that she woke up this morning around 4 AM and had right- sided chest pain. Patient states that it does radiate up into her right shoulder and right arm. Patient states that she was diaphoretic and short of breath with it. Patient has any nausea. Patient states that she has not had any new activity. 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 Patient states that she has not had any other trauma. Patient states that she has had a prior history of an aortic valve repair. Patient states that she has not had any prior MIs but states that she has had multiple TIAs. Patient states that her chest is very tender and when it is touched it does cause worsening of her pain. Patient has any rashes or redness to her chest or her right side. - Related Data Home Medications Medication Instructions Recorded Confirmed Gabapentin [Neurontin] 300 mg PO TID 01/07/16 03/08/18 Insulin Glargine [Lantus] 14 units SQ HS 01/07/16 03/08/18 Insulin LISPRO [Humalog Kwikpen 13 units SQ TID 01/07/16 03/08/18 U-100] Metoprolol [Lopressor] 25 mg PO BID 01/07/16 03/08/18 Sucralfate [Carafate] 1 gm PO QID 01/07/16 03/08/18 Topiramate [Topamax] 25 mg PO BID 01/07/16 03/08/18 metFORMIN [Glucophage] 1,000 mg PO BID 01/07/16 03/08/18 Aspirin Enteric Coated [Aspirin EC] 81 mg PO DAILY 08/29/17 03/08/18 Glimepiride [Amaryl] 2 mg PO 0800 08/29/17 03/08/18 Ibuprofen [Motrin] 800 mg PO TID PRN 08/29/17 03/08/18 Metoclopramide [Reglan] 5 mg PO BID 08/29/17 03/08/18 Nystatin POWDER [Nystop] 1 appl TP BID PRN 08/29/17 03/08/18 Simvastatin [Zocor] 20 mg PO HS 08/29/17 03/08/18 hydroCHLOROthiazide 25 mg PO QAM 08/29/17 03/08/18 [Hydrochlorothiazide] traMADol [Ultram] 50 mg PO BID PRN 08/29/17 03/08/18 Dulaglutide [Trulicity] 0.75 mg SQ TU 03/08/18 03/08/18 Previous Rx's Medication Instructions Recorded Omeprazole 20 mg PO DAILY 30 Days #30 03/09/18 tablet. Azithromycin [Zithromax] 0 mg PO Q24H #6 tablet 11/02/18 Phenylephrine HCl/Prometh HCl 5 - 10 ml PO QID PRN #180 syrup 11/02/18 [Promethazine-Phenylephrine Syr] Allergies Allergy/AdvReac Type Severity Reaction Status Date / Time latex Allergy Anaphylaxis Verified 11/02/18 13:11 lisinopril Allergy Swelling Verified 11/02/18 13:11 of Lip/Tongue/Throat Penicillins Allergy Anaphylaxis Verified 11/02/18 13:11 All systems ED: reviewed and negative except as stated. Constitutional: Denies: fever Cardiovascular: Reports: chest pain Respiratory: Reports: dyspnea Gastrointestinal: Denies: nausea, vomiting Neurological: Denies: weakness, numbness, paresthesias Past Medical History - Past Medical History Medical history: Reports: arthritis, coronary artery disease, diabetes, GERD, hyperlipidemia, hypertension, myocardial infarction, TIA Surgical history: Reports: appendectomy, cholecystectomy, coronary bypass (CABG), hysterectomy Psychiatric history: Reports: bipolar - Social History Smoking Status: Never smoker Smokeless Tobacco Status: No Alcohol use: Reports: none Drug use: Reports: none Physical Exam - General Limitations: no limitations General appearance: alert, in no apparent distress - Head Head exam: atraumatic, normocephalic - Eye Eye exam: Present: normal appearance, EOMI - Neck Neck exam: Present: normal inspection, full ROM, trachea midline - Chest Chest inspection: Present: normal inspection, symmetric chest wall rise, tenderness (Right side of her chest) - Respiratory Respiratory exam: Present: normal lung sounds bilaterally. Absent: respiratory distress, wheezes - Cardiovascular Cardiovascular exam: Present: regular rate, normal rhythm, normal heart sounds, +S1, +S2 - Abdominal Exam Abdominal exam: Present: soft, Non-Tender, normal bowel sounds - Neurological Exam Neurological exam: Present: alert, oriented X3 - Psychiatric Psychiatric exam: Present: normal affect, normal mood - Skin Skin exam: Present: warm, dry, intact. Absent: rash Course Vital Signs Temperature 99.6 F 08/03/19 09:57 Pulse Rate 69 08/03/19 09:57 Respiratory Rate 18 08/03/19 09:57 Blood Pressure 163/87 08/03/19 09:57 O2 Sat by Pulse Oximetry 100 08/03/19 09:57 Temperature 99.6 F 08/03/19 09:57 Pulse Rate 69 08/03/19 09:57 Respiratory Rate 18 08/03/19 09:57 Blood Pressure 163/87 08/03/19 09:57 O2 Sat by Pulse Oximetry 100 08/03/19 09:57 Oxygen Delivery Oxygen Delivery Room Air Medical Decision Making - MDM Narrative Medical decision making narrative: Due the patient presents emergency department with reports of chest pain, shortness of breath and diaphoresis there is concern this could potentially related to cardiac so basic laboratory testing, chest x-ray and EKG will be obtained. Due to the patient's symptoms being reproducible this does seem less likely to be cardiac workup also be obtained. Patient's EKG did show some n onspecific ST changes in lead 3. Patient's laboratory testing is relatively unremarkable including a negative troponin. Patient was given a aspirin. Upon reevaluation patient states that she is having chest pain again. The patient was given a nitroglycerin trial. The patient will require admission to the hospital for further evaluation and management. I did call and speak to the admitting hospitalist Dr. Verma who has accepted the patient to their service. Patient be admitted to the hospital this time for further evaluation and management. - Medical Records Medical records reviewed: Yes I reviewed the patient's medical records. - Lab Data Lab results reviewed: Yes I reviewed the patient's lab results. Result diagrams: 08/03/19 10:03 08/03/19 10:03 Lab Results 08/03/19 08/03/19 08/03/19 Range/Units 10:03 10:03 10:03 WBC 6.1 (4.3-11.1) K/mcL RBC 4.56 (3.82-4.97) M/mcL Hgb 13.5 (11.5-15.4) g/dL Hct 39.6 (35.3-44.9) % MCV 86.8 (83.0-100.0) fL MCH 29.6 (28.0-33.3) pg MCHC 34.1 (31.6-35.5) g/dL RDW 13.3 (11.5-14.5) % Plt Count 90 L (140-400) K/mcL MPV 11.3 (9.4-12.4) fL Immature Gran % 0.5 (0-4) % Seg Neutrophils % 79.1 % Lymphocytes % 12.9 % Monocytes % 5.1 % Eosinophils % 2.1 % Basophils % 0.3 % Neutrophils # 4.8 (1.6-8.9) K/mcL Lymphocytes # 0.8 (0.6-4.6) K/mcL Monocytes # 0.3 (0.0-1.3) K/mcL Eosinophils # 0.1 (0.0-0.6) K/mcL Basophils # 0.0 (0.0-0.2) K/mcL Immature Plt Fraction 5.2 (1.1-6.1) % PT 12.1 (9.4-12.1) Seconds INR 1.1 APTT 34.1 (26.0-36.0) Seconds Sodium 142 (136-145) mEq/L Potassium 3.4 L (3.5-5.1) mEq/L Chloride 108 H (98-107) mEq/L Carbon Dioxide 26 (23-29) mEq/L BUN 22 (8-23) mg/dL Creatinine 0.76 (0.60-1.20) mg/dL Est GFR ( Amer) > 60 (> 60) Est GFR (Non-Af Amer) > 60 (> 60) BUN/Creatinine Ratio 29 H (6-26) Glucose 169 H (70-105) mg/dL Calculated Osmolality 301 H (280-300) Calcium 8.9 (8.6-10.3) mg/dL Troponin I < 0.03 (< 0.04) ng/mL - Radiology Data Radiology results reviewed: Yes I reviewed the patient's radiology results. Chest X-Ray 08/03/19 10:58 IMPRESSION: No acute cardiopulmonary disease. D/ / Caitlin Byrnes MD / Caitlin Byrnes MD Interpreting Provider: Caitlin Byrnes MD - EKG Data EKG #1 EKG attestation: Yes I reviewed and interpreted this EKG. EKG results narrative: EKG showed a sinus rhythm and rate of 70 bpm, W[place] interval 170, QRS duration 84, QTc of 454. No STEMI on ekg Attestation Statement - Attestation Attestation: Marybeth Buenrostro D.O., examined this patient and my medical decision-making was reviewed with the Resident Physician. I agree with the documented findings, disposition and treatment plan as described except to the extent set forth below.
[2019-08-03 10:26] LABS: Hemoglobin 13.5 g/dL (11.5-15.4); Mean Platelet Volume 11.3 fL (9.4-12.4)
[2019-08-03 10:28] LABS: Basophils % 0.3 %; Eosinophils # 0.1 K/mcL (0.0-0.6); Eosinophils % 2.1 %; Hematocrit 39.6 % (35.3-44.9); Immature Granulocytes % 0.5 % (0-4); Immature Platelets 5.2 % (1.1-6.1); Lymphocytes # 0.8 K/mcL (0.6-4.6); Lymphocytes % 12.9 %; Mean Corpuscular HGB Conc 34.1 g/dL (31.6-35.5); Mean Corpuscular Hemoglobin 29.6 pg (28.0-33.3); Mean Corpuscular Volume 86.8 fL (83.0-100.0); Monocytes # 0.3 K/mcL (0.0-1.3); Monocytes % 5.1 %; Red Blood Count 4.56 M/mcL (3.82-4.97); Red Cell Distribution Width 13.3 % (11.5-14.5); Segmented Neutrophils % 79.1 %; White Blood Count 6.1 K/mcL (4.3-11.1)
[2019-08-03 10:37] LABS: INR 1.1; Prothrombin Time 12.1 Seconds (9.4-12.1)
[2019-08-03 10:40] LABS: Activated Partial Thrombo Time 34.1 Seconds (26.0-36.0)
[2019-08-03 10:45] LABS: BUN/Creatinine Ratio 29 (6-26); Blood Urea Nitrogen 22 mg/dL (8-23); Calcium 8.9 mg/dL (8.6-10.3); Carbon Dioxide 26 mEq/L (23-29); Chloride 108 mEq/L (98-107); Glucose 169 mg/dL (70-105); Osmolality,Calculated 301 (280-300); Potassium 3.4 mEq/L (3.5-5.1); Sodium 142 mEq/L (136-145); Troponin I < 0.03 ng/mL (< 0.04); eGFR For African Americans > 60 (> 60); eGFR For Non-African Americans > 60 (> 60)
[2019-08-03 10:49] LABS: Neutrophils # 4.8 K/mcL (1.6-8.9); Platelet Count 90 K/mcL (140-400)
[2019-08-03] MEDS ORDERED: Aspirin 81 MG TAB.CHEW PO STA (10:55)
[2019-08-03] MEDS ORDERED: Nitroglycerin 0.4 MG TAB.SUBL SL PRN (11:00)
--- NOTE | 2019-08-03 11:14 | Internal Med History&Physical ---
Date of Encounter: 08/03/19 Time of Encounter: 11:14 Internal Medicine - H&P: HPI Admitted From: Emergency Dept Plans for Post Hospital Care: Home History of present illness: Ms. 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 She stated about 4 AM this morning while she was sleeping she was awoken by the sudden onset of a sharp right-sided chest pain that radiated to her shoulder. She rates the pain as 10 out of 10 this morning for an independent has been constant and she also rates the pain 10 out of 10 during the encounter of this morning. She started her last stress test was about 2 months ago and that she was limited due to leg pain. She denies any history of GERD or chest wall trauma. Of note patient was laying comfortably in the ED bed and her Vitals stable. CBC was unremarkable, BMP was significant for mild hypokalemia and her initial troponin was unremarkable. Per conversation with ED physician EKG did not show any ST segment or T-wave abnormalities to suggest as acute ischemia Past Med Surg Social Fam HX - Past Medical History Medical history: arthritis, coronary artery disease, diabetes, GERD, hyperlipidemia, hypertension, myocardial infarction, TIA, other (Excision of left atrial myxoma) Additional medical history: open heart in 2016 Psychiatric history: bipolar - Past Surgical History Surgical History: appendectomy, cholecystectomy, coronary bypass (CABG), hysterectomy Additional surgical history: LHC, CABG 2016, - Social History Smoking Status: Never smoker Smokeless Tobacco Status: No Alcohol use: none Drug use: none - Family History Mother Adopted: No Family Member Ethnicity: Non- Living Status: Still Living Hx Family Cardiac Disorders: Yes (HTN,) Hx Family Respiratory Disorders: Yes (COPD, one lung removed) Hx Family Cancer: No Hx Family GI Disorders: No Hx Family Endocrine Disorder: Yes (DM) Hx Family Neuromuscular Disorders: No Hx Family Neurologic Disorders: No Hx Family HEENT Disorders: No Hx Family Autoimmune Disorders: No Internal Medicine - H&P: Meds Gabapentin [Neurontin] 300 mg PO TID 01/07/16 [History] Insulin Glargine [Lantus] 14 units SQ HS 01/07/16 [History] Insulin LISPRO [Humalog Kwikpen U-100] 13 units SQ TID 01/07/16 [History] Metoprolol [Lopressor] 25 mg PO BID 01/07/16 [History] Sucralfate [Carafate] 1 gm PO QID 01/07/16 [History] Topiramate [Topamax] 25 mg PO BID 01/07/16 [History] metFORMIN [Glucophage] 1,000 mg PO BID 01/07/16 [History] Aspirin Enteric Coated [Aspirin EC] 81 mg PO DAILY 08/29/17 [History] Glimepiride [Amaryl] 2 mg PO 0800 08/29/17 [History] Ibuprofen [Motrin] 800 mg PO TID PRN 08/29/17 [History] Metoclopramide [Reglan] 5 mg PO BID 08/29/17 [History] Nystatin POWDER [Nystop] 1 appl TP BID PRN 08/29/17 [History] Simvastatin [Zocor] 20 mg PO HS 08/29/17 [History] hydroCHLOROthiazide [Hydrochlorothiazide] 25 mg PO QAM 08/29/17 [History] traMADol [Ultram] 50 mg PO BID PRN 08/29/17 [History] Dulaglutide [Trulicity] 0.75 mg SQ TU 03/08/18 [History] Omeprazole 20 mg PO DAILY 30 Days #30 tablet. 03/09/18 [Rx] Azithromycin [Zithromax] 0 mg PO Q24H #6 tablet 11/02/18 [Rx] Phenylephrine HCl/Prometh HCl [Promethazine-Phenylephrine Syr] 5 - 10 ml PO QID PRN #180 syrup 11/02/18 [Rx] Allergy/AdvReac Type Severity Reaction Status Date / Time latex Allergy Anaphylaxis Verified 11/02/18 13:11 lisinopril Allergy Swelling Verified 11/02/18 13:11 of Lip/Tongue/Throat Penicillins Allergy Anaphylaxis Verified 11/02/18 13:11 All Systems PM: GENERAL: Denies fever, chills, fatigue or night sweats. DERMATOLOGIC: Denies itch, rash or lesions HEENT: Denies headache, blurriness, diplopia or decreased visual acuity, ear pain, tinnitus, rhinorrhea, sinus tenderness or sore throat RESPIRATORY: Denies SOB, cough, hemoptysis but reports pleuritic chest pain CARDIOVASCULAR: Denies chest pain, LE edema, palpitation or syncope GASTRO INTESTINAL: Denies cramps, nausea/vomiting, diarrhea or constipation, melena MUSCULOSKELATAL: Denies muscle pain/weakness, joint tenderness/pain or swelling PSYCH: Denies worsening anxiety, or depression NEURO: Denies vertigo, dizziness, or ataxia GENITURINARY: Denies dysuria, nocturia or urinary incontinence - Constitutional Vitals: Temp Pulse Resp BP Pulse Ox 99.6 F 69 18 163/87 100 08/03/19 09:57 08/03/19 09:57 08/03/19 09:57 08/03/19 09:57 08/03/19 09:57 Exam: GENERAL: NAD, A&O x3, pleasant and conversant, at the bedside SKIN: No skin lesions or rashes, non-jaundiced EYES: EOMI, PERRLA, no sclera icterus HENT: Head atraumatic, no facial asymmetry, frontal and maxillary sinus non- tender, normal hearing, oropharynx and mucosa moist and without any exudates NECK: No cervical lymphadenopathy, trachea midline, thyroid is palpable does not appear enlarged LUNGS: vesicular breath sounds, clear to auscultation, no wheeze, rhonchi, rales or crackles. Non labored respirations HEART: Normal rate and rhythm, no murmurs or rubs ABDOMEN: soft, non-tender, non-distended, bowel sounds x 4 normoactive EXTRMITIES: No LE asymmetry, No LE edema, pedal pulses 1+ and radial pulses 2 + and equal bilaterally NEURO: Speech and comprehension appears intact. Cranial nerve II-XII grossly intact as examined. PSYCH: Cooperative, non- anxious or irritable, mood and affect is appropriate Internal Med - H&P Results - Labs CBC & Chem 7: 08/03/19 10:03 08/03/19 10:03 Labs: Short CBC 08/03/19 Range/Units 10:03 WBC 6.1 (4.3-11.1) K/mcL Hgb 13.5 (11.5-15.4) g/dL Hct 39.6 (35.3-44.9) % Plt Count 90 L (140-400) K/mcL Neutrophils # 4.8 (1.6-8.9) K/mcL BMP 08/03/19 10:03 Sodium 142 Potassium 3.4 L Chloride 108 H Carbon Dioxide 26 BUN 22 Creatinine 0.76 Glucose 169 H Calcium 8.9 Cardiac Enzymes 08/03/19 Range/Units 10:03 Troponin I < 0.03 (< 0.04) ng/mL - Impressions ITS Impressions Chest X-Ray 08/03/19 10:58 IMPRESSION: No acute cardiopulmonary disease. D/ / Caitlin Byrnes MD / Caitlin Byrnes MD Interpreting Provider: Caitlin Byrnes MD - Assessment and Plan (1) Chest pain Current Visit: Yes Status: Acute Assessment and plan: Patient presented with right-sided chest pain appears to be pleuritic and reproducible on exam with point tenderness at the third of fourth intercostal space lateral to the sternum on the right. Patient rates the pain 10 out of 10 constant. She denies any formal diagnosis of myocardial infarction she stated that her open heart surgery was for excision of what she described as a left atrial myxoma, which according to the patient was diagnosed when she was having episodes of TIAs. Initial troponin was negative we will trend, rule out ACS. Due to point tenderness as aforementioned will repeat 2 view radiograph of the chest wall to help delineate and rule out any subtle abnormalities. Pleurisy is high on the differential, she denies any history of GERD or reflux symptoms. She reports the pain radiates to the right shoulder as such referred pain is also on the differential however abdomen exam was benign she has no leukocytosis Qualifiers: Chest pain type: chest pain on breathing Qualified Code(s): R07.1 - Chest pain on breathing; R07.81 - Pleurodynia (2) Hypokalemia Current Visit: Yes Status: Acute Assessment and plan: Mild hypokalemia at 3.4. We will supplement orally (3) Diabetes Current Visit: Yes Status: Chronic Assessment and plan: place on insulin per protocol, obtain an A1c in the morning to ascertain diabetic control Qualifiers: Diabetes mellitus type: type 2 Diabetes mellitus [facility] insulin use: with terminal operations manager use Diabetes mellitus complication status: without complication Qualified Code(s): E11.9 - Type 2 diabetes mellitus without complications; Z79.4 - [facility] (current) use of insulin; Z79.4 - [employer] (current) use of insulin; Z79.4 - [facility] (current) use of insulin; Z79.4 - [facility] (current) use of insulin (4) HLD (hyperlipidemia) Current Visit: Yes Status: Chronic Assessment and plan: We will switch Zocor to moderate intensity statin therapy Qualifiers: Hyperlipidemia type: unspecified Qualified Code(s): E78.5 - Hyperlipidemia, unspecified (5) HTN (hypertension) Current Visit: Yes Status: Chronic Assessment and plan: Resume home meds once the med rec is complete Qualifiers: Hypertension type: essential hypertension Qualified Code(s): I10 - Essential (primary) hypertension (6) DVT prophylaxis Current Visit: Yes Status: Acute Assessment and plan: Heparin per protocol - Time Spent With Patient Total time spent is greater than 50% in coordination of care (as documented) at patient's floor/unit and/or counseling patient:
[2019-08-03] MEDS ORDERED: Naloxone 0.4 MG/ML INJ IVP PRN (11:47)
[2019-08-03] MEDS ORDERED: Ondansetron 4 MG/2 ML VIAL IVP PRN (11:47)
[2019-08-03] MEDS ORDERED: Acetaminophen 325 MG TABLET PO PRN (11:47)
[2019-08-03] MEDS ORDERED: Dextrose Gel 15 GM/37.5 ML TUBE PO PRN ×2 (12:48)
[2019-08-03] MEDS ORDERED: *HR* Dextrose 50 % in Water (Syg) 50 ML SYRINGE IVP PRN (12:48)
[2019-08-03] MEDS ORDERED: D5% in Water 1,000 ML IVC PRN (12:48)
[2019-08-03] MEDS: Insulin LISPRO 300 UNITS/3 ML VIAL SQ SCH (16:13)
[2019-08-03] MEDS: *HR* Heparin 5,000 UNIT/ML VIAL SQ SCH ×2 (16:14→22:37)
[2019-08-03] MEDS ORDERED: Insulin DETEMIR 100 UNIT/ML X5UNITS SQ SCH (21:00)
[2019-08-03] MEDS ORDERED: Morphine Sulfate 2 MG/ML SYRINGE IVP PRN (23:02)
[2019-08-04] MEDS: Insulin LISPRO 300 UNITS/3 ML VIAL SQ SCH ×4 (08:47→18:00)
[2019-08-04] MEDS ORDERED: Aspirin Enteric Coated 81 MG Tablet PO SCH (09:00)
[2019-08-04] MEDS ORDERED: Ketorolac 30 MG/ML VIAL IVP ONE (10:54)
[2019-08-04] MEDS ORDERED: traMADol 50 MG TABLET PO PRN (10:55)
[2019-08-04] MEDS ORDERED: Isovue-370 500 ML BOTTLE IVP ONE (10:58)
--- NOTE | 2019-08-04 11:23 | Internal Med Progress Note ---
Hospitalist Progress Note - Encounter Date of Encounter: 08/04/19 Time of Encounter: 10:45 - Exam Vitals: Temp Pulse Resp BP Pulse Ox 97.9 F 60 16 134/80 98 08/04/19 07:03 08/04/19 07:03 08/04/19 07:03 08/04/19 07:03 08/04/19 07:03 - Assessment and Plan (1) Chest pain Current Visit: Yes Status: Acute (2) Hypokalemia Current Visit: Yes Status: Acute (3) Diabetes Current Visit: Yes Status: Chronic (4) HLD (hyperlipidemia) Current Visit: Yes Status: Chronic (5) HTN (hypertension) Current Visit: Yes Status: Chronic (6) DVT prophylaxis Current Visit: Yes Status: Acute - Time Spent with Patient Total time spent is greater than 50% in coordination of care (as documented) at patient's floor/unit and/or counseling patient: Internal Medicine: Result - Labs CBC & Chem 7: 08/03/19 10:03 08/03/19 10:03 Labs: Cardiac Enzymes 08/03/19 08/03/19 08/03/19 Range/Units 16:18 22:04 23:14 Troponin I < 0.03 < 0.03 < 0.03 (< 0.04) ng/mL - ABG Interpretation ABG results: PT/INR, D-dimer PT 12.1 Seconds (9.4-12.1) 08/03/19 10:03 - Impressions Impressions Chest X-Ray 08/03/19 13:44 IMPRESSION: No acute process. 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
[2019-08-04] MEDS: Sucralfate 1 GM TABLET PO SCH ×2 (12:00→16:55)
[2019-08-04 13:56] LABS: Basophils % 0.7 %; Eosinophils # 0.1 K/mcL (0.0-0.6); Eosinophils % 2.1 %; Hematocrit 41.6 % (35.3-44.9); Hemoglobin 13.8 g/dL (11.5-15.4); Immature Granulocytes % 0.3 % (0-4); Lymphocytes # 1.2 K/mcL (0.6-4.6); Lymphocytes % 21.2 %; Mean Corpuscular HGB Conc 33.2 g/dL (31.6-35.5); Mean Corpuscular Hemoglobin 28.7 pg (28.0-33.3); Mean Corpuscular Volume 86.5 fL (83.0-100.0); Mean Platelet Volume 11.2 fL (9.4-12.4); Monocytes # 0.4 K/mcL (0.0-1.3); Monocytes % 6.3 %; Neutrophils # 4.1 K/mcL (1.6-8.9); Platelet Count 111 K/mcL (140-400); Red Blood Count 4.81 M/mcL (3.82-4.97); Red Cell Distribution Width 13.3 % (11.5-14.5); Segmented Neutrophils % 69.4 %; White Blood Count 5.9 K/mcL (4.3-11.1)
[2019-08-04 14:05] LABS: BUN/Creatinine Ratio 24 (6-26); Blood Urea Nitrogen 24 mg/dL (8-23); Calcium 9.3 mg/dL (8.6-10.3); Carbon Dioxide 23 mEq/L (23-29); Chloride 108 mEq/L (98-107); Glucose 216 mg/dL (70-105); Magnesium 1.9 mg/dL (1.6-2.6); Osmolality,Calculated 297 (280-300); Sodium 138 mEq/L (136-145); eGFR For African Americans > 60 (> 60); eGFR For Non-African Americans 55 (> 60)
[2019-08-04] MEDS ORDERED: Gabapentin 300 MG CAPSULE PO SCH (15:00)
[2019-08-04 15:57] LABS: Estimated Average Glucose 237 mg/dl
--- NOTE | 2019-08-04 18:12 | Discharge Summary ---
- NOTES TO OUTPATIENT PROVIDER Notes to Outpatient Provider: Pt presented with R side chest pain consistent with costochondritis. Toradol helpful. CTA chest negative. Trop x 4 negative. Date of Encounter: 08/04/19 Time of Encounter: 18:07 - Discharge Diagnosis (1) Costochondritis, acute Priority: Primary Status: Acute (2) Chest pain Priority: Secondary Status: Acute Qualifiers: Chest pain type: chest pain on breathing Qualified Code(s): R07.1 - Chest pain on breathing; R07.81 - Pleurodynia (3) Hypokalemia Priority: Secondary Status: Resolved (4) Diabetes Priority: Secondary Status: Chronic Qualifiers: Diabetes mellitus type: type 2 Diabetes mellitus skein tier insulin use: with fpc use Diabetes mellitus complication status: without complication Qualified Code(s): E11.9 - Type 2 diabetes mellitus without complications; Z79.4 - skilled nursing (current) use of insulin; Z79.4 - skilled nursing (current) use of insulin; Z79.4 - skilled nursing (current) use of insulin; Z79.4 - skilled nursing (current) use of insulin (5) HLD (hyperlipidemia) Priority: Secondary Status: Chronic Qualifiers: Hyperlipidemia type: mixed hyperlipidemia Qualified Code(s): E78.2 - Mixed hyperlipidemia (6) HTN (hypertension) Priority: Secondary Status: Chronic Qualifiers: Hypertension type: essential hypertension Qualified Code(s): I10 - Essential (primary) hypertension Hospital course: Ms. Mtz is a 64 year old female with hx of DM and CAD presented to ED with R side chest pain. Ms Mtz was placed in observation for R side chest pain. It was very l ocalized and tender to touch. 4 troponin levels were negative. CTA of chest negative as well. Pt was given toradol with improvement. Currently improving and afebrile. D/C home today. - Time Spent with Patient Total time spent providing and/or coordinating discharge services: - Discharge Medications Prescriptions: New Metoclopramide [Reglan] 5 mg PO BID tablet Continued Topiramate [Topamax] 25 mg PO DAILY Metoprolol [Lopressor] 25 mg PO BID Insulin LISPRO [Humalog Kwikpen U-100] 8 - 15 units SQ TIDWM Gabapentin [Neurontin] 300 mg PO HS Glimepiride [Amaryl] 2 mg PO QAM Simvastatin [Zocor] 20 mg PO HS Aspirin Enteric Coated [Aspirin EC] 81 mg PO DAILY Ibuprofen [Motrin] 800 mg PO 2-3XD PRN PRN Reason: Pain Citalopram Hydrobromide [Citalopram HBr] 10 mg PO HS Dicyclomine Hcl [Bentyl] 20 mg PO QID Dulaglutide [Trulicity] 1.5 mg PO QWEEK Ergocalciferol (VITAMIN D2) [Vitamin D2] 50,000 unit PO QWEEK Insulin Degludec [Tresiba Flextouch U-200] 50 unit SQ DAILY Losartan/Hydrochlorothiazide [Losartan-Hctz 100-25 mg Tab] 0.5 - 1 tab PO DAILY Metformin HCl 1,000 mg PO BID Omeprazole [PriLOSEC] 40 mg PO DAILY Sucralfate [Carafate] 1 gm PO QID Home Medications: Gabapentin [Neurontin] 300 mg PO HS 01/07/16 [History] Insulin LISPRO [Humalog Kwikpen U-100] 8 - 15 units SQ TIDWM 01/07/16 [History] Metoprolol [Lopressor] 25 mg PO BID 01/07/16 [History] Topiramate [Topamax] 25 mg PO DAILY 01/07/16 [History] Aspirin Enteric Coated [Aspirin EC] 81 mg PO DAILY 08/29/17 [History] Glimepiride [Amaryl] 2 mg PO QAM 08/29/17 [History] Ibuprofen [Motrin] 800 mg PO 2-3XD PRN 08/29/17 [History] Simvastatin [Zocor] 20 mg PO HS 08/29/17 [History] Citalopram Hydrobromide [Citalopram HBr] 10 mg PO HS 08/04/19 [History] Dicyclomine Hcl [Bentyl] 20 mg PO QID 08/04/19 [History] Dulaglutide [Trulicity] 1.5 mg PO QWEEK 08/04/19 [History] Ergocalciferol (VITAMIN D2) [Vitamin D2] 50,000 unit PO QWEEK 08/04/19 [History] Insulin Degludec [Tresiba Flextouch U-200] 50 unit SQ DAILY 08/04/19 [History] Losartan/Hydrochlorothiazide [Losartan-Hctz 100-25 mg Tab] 0.5 - 1 tab PO DAILY 08/04/19 [History] Metformin HCl 1,000 mg PO BID 08/04/19 [History] Metoclopramide [Reglan] 5 mg PO BID tablet 08/04/19 [Rx] Omeprazole [PriLOSEC] 40 mg PO DAILY 08/04/19 [History] Sucralfate [Carafate] 1 gm PO QID 08/04/19 [History] Allergies/Adverse Reactions: Allergy/AdvReac Type Severity Reaction Status Date / Time latex Allergy Anaphylaxis Verified 11/02/18 13:11 lisinopril Allergy Swelling Verified 11/02/18 13:11 of Lip/Tongue/Throat Penicillins Allergy Anaphylaxis Verified 11/02/18 13:11 Date of admission: 08/03/19 11:05 Primary care physician: Xavier Thomas MD Discharging clinician: Yifan Pagan Anticipated date of discharge: 08/04/19 - Constitutional Vitals: Temp Pulse Resp BP Pulse Ox 98.7 F 65 14 145/84 97 08/04/19 16:12 08/04/19 16:12 08/04/19 16:12 08/04/19 16:12 08/04/19 16:12 General appearance: Present: A&O X 3, answers questions appropriately Exam: See below - Head Head exam: Present: normocephalic - Eye Eye exam: Present: EOMI, conjuntiva pink - ENT ENT exam: Present: normal exam - Neck Neck exam general surgery: Present: supple - Respiratory Respiratory exam: Present: CTAB. Absent: rhonchi, wheezes - Cardiovascular Cardiovascular exam: Present: RRR. Absent: tachycardia Additional comments: Very pinpoint tender on R anterior costochondral area. - Extremities Exam Extremities exam: Present: warm. Absent: tenderness - Neurological Exam Neurological exam: Present: alert, oriented X3 - Skin Skin exam: Present: dry, warm - Patient Status Disposition: Home, Self-Care Condition: Good Functional capacity at discharge: independent ambulation Overall status at discharge: patient is progressing back to baseline - Discharge Instructions Follow Up With: Xavier Thomas MD [Primary Care Provider] - Forms: Inpatient Work/School Release Additional Instructions: Hold Metformin until Tuesday (had IV contrast today). Take Ibuprofen 800mg every 8 hours for next 3 days. Follow up with Dr. Pham in a week. Off work till 08/13 - Diet and Activity Activity: resume usual activities as tolerated Diet: advance to your usual diet
[2019-08-04 19:06] VITALS: BP 154/84
[2019-08-04] MEDS ORDERED: Insulin DETEMIR 100 UNIT/ML X5UNITS SQ SCH (21:00)
[2019-08-04] MEDS ORDERED: Topiramate 25 MG TABLET PO SCH (21:00)
[2019-08-05] MEDS ORDERED: hydroCHLOROthiazide 25 MG TABLET PO SCH (09:00)
--- NOTE | 2019-08-06 10:22 | Electrocardiograph Report ---
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
--- NOTE | 2019-08-07 09:35 | Electrocardiograph Report ---
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
== END 2019-08-04 19:20 | disposition home or self-care (01) ==
LOC: EMEROOARM 09:46 → 3BNU 09:46 → SUATTDRO 11:05 → 3BNU 11:48
PROVIDERS: ADMIT Pharmacist; ATTEND Internal Medicine